=== PATIENT | male | born 1980 | race Caucasian/White ===

== ENCOUNTER 2017-09-29 11:16 | Observation (INO) ==
[2017-09-29] MEDS: 0.9 % Sodium Chloride 1,000 ML IVC ONE ×2 (11:16→16:04)
[2017-09-29] MEDS ORDERED: Pantoprazole 40 MG VIAL IVP ONE (11:18)
[2017-09-29] MEDS ORDERED: Ondansetron 4 MG/2 ML VIAL IVP ONE (11:18)
[2017-09-29] MEDS ORDERED: 0.9 % Sodium Chloride 1,000 ML IVC ONE ×2 (11:21→16:23)
[2017-09-29] MEDS ORDERED: Thiamine (B-1) 100 MG in D5% in Water 50 ML IVPB STA (11:21)
[2017-09-29 11:49] LABS: Basophils % 0.2 %; Hematocrit 48.9 % (37.5-50.1); Hemoglobin 17.1 g/dL (12.9-16.9); Immature Granulocytes % 0.2 % (0-4); Lymphocytes # 0.6 K/mcL (0.6-4.6); Lymphocytes % 11.8 %; Mean Corpuscular Hemoglobin 31.8 pg (28.0-33.3); Mean Corpuscular Volume 91.1 fL (83.0-100.0); Mean Platelet Volume 9.4 fL (9.4-12.4); Monocytes # 0.6 K/mcL (0.0-1.3); Monocytes % 11.4 %; Neutrophils # 3.9 K/mcL (1.6-8.9); Platelet Count 102 K/mcL (140-400); Red Blood Count 5.37 M/mcL (4.19-5.50); Red Cell Distribution Width 13.3 % (11.5-14.5); Segmented Neutrophils % 76.4 %
[2017-09-29 11:51] LABS: Bilirubin,Urine Moderate (Negative); Blood,Urine Negative (Negative); Glucose,Urine (UA) Normal (Normal); Ketones,Urine 40 mg/dL (Negative); Leukocyte Esterase,Urine Small (Negative); Nitrite,Urine Positive (Negative); PH,Urine 6.5 pH Units (5.0-8.0); Protein,Urine 30 mg/dL (Neg-Trace); Specific Gravity,Urine 1.027 (1.010-1.025); Urobilinogen,Urine Normal (Normal)
[2017-09-29 11:54] LABS: Squamous Epithelial Cell,Urine Many per lpf (None-Few)
[2017-09-29 11:56] LABS: Amphetamine Screen,Urine Negative ng/mL (Cutoff=1000); Barbiturate Screen,Urine Negative ng/mL (Cutoff=200); Benzodiazepines Screen,Urine Negative ng/mL (Cutoff=200); Cannabinoid Screen,Urine Negative ng/mL (Cutoff = 50); Cocaine Screen,Urine Negative ng/mL (Cutoff= 300); Opiate Screen,Urine Negative ng/mL (Cutoff=300); Phencyclidine Screen,Urine Negative ng/mL (Cutoff=25)
[2017-09-29 11:57] LABS: Clarity,Urine Hazy (Clear); Color,Urine Dark Yellow (Yellow)
[2017-09-29 12:04] LABS: Alanine Aminotransferase 125 Units/L (0-55); Albumin/Globulin Ratio 1.1 (1.1-2.2); Alkaline Phosphatase 107 Units/L (38-126); Aspartate Amino Transferase 212 Units/L (5-34); BUN/Creatinine Ratio 12 (6-26); Bilirubin,Direct 1.4 mg/dL (0.0-0.5); Bilirubin,Indirect 1.4 mg/dL (0.0-1.2); Bilirubin,Total 2.8 mg/dL (0.2-1.2); Blood Urea Nitrogen 12 mg/dL (8-26); Calcium 10.3 mg/dL (8.6-10.8); Carbon Dioxide 30 mEq/L (19-29); Chloride 90 mEq/L (98-109); Globulin 3.7 g/dL (2.4-3.5); Glucose 95 mg/dL (70-99); Lipase 49 Units/L (8-78); Osmolality,Calculated 280 (280-300); Potassium 3.2 mEq/L (3.5-4.5); Sodium 135 mEq/L (136-145); Total Protein 7.7 g/dL (6.0-8.3); eGFR For African Americans > 60 (> 60); eGFR For Non-African Americans > 60 (> 60)
[2017-09-29 12:05] LABS: Mucus,Urine Moderate (Few)
[2017-09-29 12:06] LABS: Amorphous Sediment,Urine Few (Few); Granular Casts,Urine Moderate per lpf (None Seen); Hyaline Casts,Urine Few per lpf (None-Few)
[2017-09-29 12:07] LABS: Bacteria,Urine Few per hpf (None-Few)
--- NOTE | 2017-09-29 12:07 | Emergency Department Note ---
START Narrative - START START: 37-year-old male seen and examined in conjunction with resident physician. Presented today for nausea vomiting abdominal pain is progressively last for 5 days. Patient does admit to alcohol use during this timeframe as well as some liver pathology including hepatitis. Patient denies a trauma or injury. Patient denies fevers chills chest pain shortness of breath headache vision changes at this time. His main complaint is nausea vomiting is uncontrolled abdominal discomfort. Patient otherwise in presentation appears to be normal. He does have sinus tachycardia based on vital signs. Lungs are clear heart is regular abdomen is soft but he does have tenderness in the epigastrium radiating into the upper quadrants bilaterally. There is no point tenderness guarding or rigidity noted on exam. Patient does have significantly dark- colored urine consistent with possible dehydration or kidney related issue. Patient will have detailed screening evaluation completed including EKG urinalysis urine drug screen CBC chemistry troponin chest x-ray and CT of the abdomen at this time. Disposition will be determined once workup is completed. Fluid hydration started this time as well as antiemetics for symptom control. Otherwise patient does not appear to be in any other significant distress. Concern is noted for pancreatitis first gallbladder disease versus gastritis secondary to alcohol consumption. Patient denies any hematemesis or hematochezia at this time. Otherwise evaluation is unremarkable. Disposition pending workup and treatment course. 1300 Patient found to have obstructive pathology based on labs. CT imaging does not show any acute signs of gallbladder dysfunction may does have significant fatty infiltrate and irritation. Patient could have obstructive pathology secondary to the presentation and the laboratory workup. Patient will have ultrasound ordered this time. Disposition pending the acute workup and completion of treatment course. 1445 Patient has negative ultrasound right upper quadrant. Patient will be admitted for symptom control follow-up and possible ERCP in inpatient setting. No other concerns or issues at this time.
--- NOTE | 2017-09-29 12:42 | Emergency Department Note ---
Disposition Clinical Impression: Abdominal pain of unknown etiology, Total bilirubin, elevated, Hypokalemia, Biliary obstruction Nausea with vomiting, unspecified Qualifiers: Vomiting type: unspecified Vomiting Intractability: non-intractable Qualified Code(s): R11.2 - Nausea with vomiting, unspecified Disposition: Admitted As Inpatient Condition: Undetermined Referrals: Iris Ambrose MD [Primary Care Provider] - Forms: ED Satisfaction Letter, Work/School Release Time of Disposition: 15:45 Abdominal Pain HPI - General Chief Complaint: ED Abdominal Pain Stated Complaint: Abdominal pain, vomiting Time Seen by Provider: 09/29/17 11:18 Source: EMS Nursing Notes Reviewed: Yes Vital Signs Reviewed: Yes - History of Present Illness HPI Narrative: Patient is 37-year-old male complains of epigastric and right upper quadrant abdominal pain 4 days. Patient also complains of near continuous nausea and vomiting since then. Patient states he vomits every 20 minutes. Patient states the pain is sharp 10 out of 10. Patient has a history of all call his him and states he tried to drink alcohol to help lessen his pain but threw up. Patient denies any hematemesis or hematochezia or melanotic stools. Patient states he drinks 2-3 shots of vodka a day. Patient also states he has liver issues. Pain Scale: 9 - Related Data Home Medications Medication Instructions Recorded Confirmed Mv-Mn/FA/Vit K/Lycop/Lut/Coq10 1 tab PO DAILY 09/29/17 09/29/17 [Daily Multivitamin Capsule] Naproxen Sodium [Aleve] 220 mg PO BID PRN 09/29/17 09/29/17 Allergies Allergy/AdvReac Type Severity Reaction Status Date / Time No Known Allergies Allergy Verified 09/29/17 15:08 All systems ED: reviewed and negative except as stated. Review of Systems: As Per HPI Constitutional: Reports: fever, chills Eyes: Denies: vision change ENT ED: Denies: congestion Cardiovascular: Denies: chest pain Respiratory: Denies: cough, wheezes, hemoptysis Gastrointestinal: Reports: abdominal pain, nausea, vomiting. Denies: diarrhea, hematemesis, melena, hematochezia Genitourinary: Reports: dysuria, hematuria Abdominal Pain PMH - Past Medical History Medical history: Reports: asthma, liver disease, renal disease Male Surgical History: Reports: orthopedic, other - Social History Smoking status: Former smoker Alcohol use: Reports: occasionally Drug use: Reports: none Physical Exam Vital Signs Temperature 98.4 F 09/29/17 11:23 Pulse Rate 134 09/29/17 11:23 Respiratory Rate 18 09/29/17 11:23 Blood Pressure 120/93 09/29/17 11:23 O2 Sat by Pulse Oximetry 95 09/29/17 11:23 Temperature 98.4 F 09/29/17 11:23 Pulse Rate 112 09/29/17 11:35 Respiratory Rate 16 09/29/17 11:35 Blood Pressure 120/95 09/29/17 11:35 O2 Sat by Pulse Oximetry 95 09/29/17 11:35 Oxygen Delivery Oxygen Delivery Room Air 37-year-old male is alert and oriented 3 and in acute distress secondary to abdominal discomfort. Patient has a vomit bag in hand. Patient does not appear toxic at this time. He is tachycardic at 134 but is afebrile and also has hypertension with a blood pressure of 120/93. O2 sat 95 on room air. - General Limitations: no limitations General appearance: alert, anxious - Head Head exam: atraumatic, normocephalic, normal inspection - Eye Eye exam: Present: normal appearance, PERRL, EOMI - ENT ENT exam: normal exam, normal oropharynx, mucous membranes moist - Neck Neck exam: Present: normal inspection, full ROM, trachea midline - Chest Chest inspection: Present: normal inspection, symmetric chest wall rise - Respiratory Respiratory exam: Present: normal lung sounds bilaterally. Absent: respiratory distress, wheezes - Cardiovascular Cardiovascular exam: Present: normal rhythm, tachycardia - Abdominal Exam Abdominal exam: Present: soft, tenderness, normal bowel sounds. Absent: distention, guarding, rebound, rigidity - Extremities Exam Extremities exam: Present: normal inspection, full ROM, normal capillary refill. Absent: tenderness, pedal edema - Back Exam Back exam: Present: normal inspection, full ROM, CVA tenderness (R). Absent: tenderness, CVA tenderness (L), rashes - Neurological Exam Neurological exam: Present: alert, oriented X3 - Skin Skin exam: Present: warm, dry, intact, normal color. Absent: rash Course Vital Signs Temperature 98.4 F 09/29/17 11:23 Pulse Rate 134 09/29/17 11:23 Respiratory Rate 18 09/29/17 11:23 Blood Pressure 120/93 09/29/17 11:23 O2 Sat by Pulse Oximetry 95 09/29/17 11:23 Temperature 98.4 F 09/29/17 11:23 Pulse Rate 120 09/29/17 15:04 Respiratory Rate 18 09/29/17 15:04 Blood Pressure 137/104 09/29/17 15:04 O2 Sat by Pulse Oximetry 97 09/29/17 15:04 Oxygen Delivery Oxygen Delivery Room Air Abdominal Pain - MDM Narrative Medical decision making narrative: Patient concern for possible pancreatitis, cholecystitis, biliary obstruction, he has hematuria so renal pathology for nephrolithiasis, UTI. Patient also concerning for a call withdrawal. WA ordered Order appropriate labs: CBC, BMP, LFTs, lipase, lactate, chest x-ray CT abdomen and pelvis. Medications IV normal saline, thiamine 100 mg IV. Since imaging results are: Abdomen/Pelvis CT 09/29/17 11:20 IMPRESSION: 1. No evidence of bowel obstruction, intraperitoneal free air, or abscess. 2. Findings consistent with interval development of moderate relatively diffuse fatty infiltration of the liver. 3. Findings suggestive of presence of extremely minimal/trace free fluid within the pelvis. Finding is nonspecific however represents abnormal finding in a male patient. Short-term follow-up examination recommended if clinically indicated. 4. Findings suggestive of presence of small hiatal hernia. Possible mural thickening involving the distal esophagus. Finding is nonspecific however raises the possibility of changes of mild esophagitis. Follow-up endoscopy may be helpful for more complete evaluation. Liver and gallbladder ultrasound shows fatty liver. Labs show patient is hypokalemic and will need to be given potassium supplementation IV. No clear cause for patient's of biliary obstruction currently. Plan for admission. Patient accepts this is not for admission. Patient may require ERCP to investigate possible common bile duct obstruction. Patient will continue to receive pain management and nausea management for her symptoms. Patient is administered 0.5 mg Ativan to control any alcohol withdrawal symptoms. He will continue to get treatment for his pain. His been receiving fentanyl sofar will change and administer Dilaudid 1 mg. Patient was accepted for admission by Dr. Gruber. - Lab Data Lab results reviewed: Yes I reviewed the patient's lab results. Lab results narrative: Short CBC 09/29/17 Range/Units 11:42 WBC 5.1 (4.3-11.1) K/mcL Hgb 17.1 H (12.9-16.9) g/dL Hct 48.9 (37.5-50.1) % Plt Count 102 L (140-400) K/mcL Neutrophils # 3.9 (1.6-8.9) K/mcL BMP 09/29/17 Range/Units 11:42 Sodium 135 L (136-145) mEq/L Potassium 3.2 L (3.5-4.5) mEq/L Chloride 90 L (98-109) mEq/L Carbon Dioxide 30 H (19-29) mEq/L BUN 12 (8-26) mg/dL Creatinine 1.00 (0.72-1.25) mg/dL Glucose 95 (70-99) mg/dL Calcium 10.3 (8.6-10.8) mg/dL Cardiac Enzymes 09/29/17 Range/Units 11:42 Troponin I 0.01 (0-0.03) ng/mL Liver Function 09/29/17 Range/Units 11:42 Total Bilirubin 2.8 H (0.2-1.2) mg/dL Direct Bilirubin 1.4 H (0.0-0.5) mg/dL AST 212 H (5-34) Units/L ALT 125 H (0-55) Units/L Alkaline Phosphatase 107 (38-126) Units/L Albumin 4.0 (3.5-5.0) g/dL Urine 09/29/17 Range/Units 11:33 Urine Color Dark Yellow (Yellow) Urine Clarity Hazy (Clear) Urine pH 6.5 (5.0-8.0) pH Units Ur Specific [place] 1.027 H (1.010-1.025) Urine Protein 30 H (Neg-Trace) mg/dL Urine Glucose (UA) Normal (Normal) mg/dL Result diagrams: 09/29/17 11:42 09/29/17 11:42 Lab Results 09/29/17 09/29/17 09/29/17 Range/Units 11:33 11:33 11:42 WBC 5.1 (4.3-11.1) K/mcL RBC 5.37 (4.19-5.50) M/mcL Hgb 17.1 H (12.9-16.9) g/dL Hct 48.9 (37.5-50.1) % MCV 91.1 (83.0-100.0) fL MCH 31.8 (28.0-33.3) pg MCHC 35.0 (31.6-35.5) g/dL RDW 13.3 (11.5-14.5) % Plt Count 102 L (140-400) K/mcL MPV 9.4 (9.4-12.4) fL Immature Gran % 0.2 (0-4) % Seg Neutrophils % 76.4 % Lymphocytes % 11.8 % Monocytes % 11.4 % Eosinophils % 0.0 % Basophils % 0.2 % Neutrophils # 3.9 (1.6-8.9) K/mcL Lymphocytes # 0.6 (0.6-4.6) K/mcL Monocytes # 0.6 (0.0-1.3) K/mcL Eosinophils # 0.0 (0.0-0.6) K/mcL Basophils # 0.0 (0.0-0.2) K/mcL Sodium (136-145) mEq/L Potassium (3.5-4.5) mEq/L Chloride (98-109) mEq/L Carbon Dioxide (19-29) mEq/L BUN (8-26) mg/dL Creatinine (0.72-1.25) mg/dL Est GFR ( Amer) (> 60) Est GFR (Non-Af Amer) (> 60) BUN/Creatinine Ratio (6-26) Glucose (70-99) mg/dL Calculated Osmolality (280-300) Lactic Acid (0.5-2.2) mmol/L Calcium (8.6-10.8) mg/dL Total Bilirubin (0.2-1.2) mg/dL Direct Bilirubin (0.0-0.5) mg/dL Indirect Bilirubin (0.0-1.2) mg/dL AST (5-34) Units/L ALT (0-55) Units/L Alkaline Phosphatase (38-126) Units/L Troponin I (0-0.03) ng/mL Serum Total Protein (6.0-8.3) g/dL Albumin (3.5-5.0) g/dL Globulin (2.4-3.5) g/dL Albumin/Globulin Ratio (1.1-2.2) Lipase (8-78) Units/L Urine Color Dark Yellow (Yellow) Urine Clarity Hazy (Clear) Urine pH 6.5 (5.0-8.0) pH Units Ur Specific [place] 1.027 H (1.010-1.025) Urine Protein 30 H (Neg-Trace) mg/dL Urine Glucose (UA) Normal (Normal) mg/dL Urine Ketones 40 H (Negative) mg/dL Urine Blood Negative (Negative) Urine Nitrite Positive A (Negative) Urine Bilirubin Moderate H (Negative) Urine Urobilinogen Normal (Normal) mg/dL Ur Leukocyte Esterase Small H (Negative) Urine Microscopic RBC 3-5 H (0-3) per hpf Urine Microscopic WBC 5-15 H (0-3) per hpf Ur Squamous Epith Cells Many H (None-Few) per lpf Amorphous Sediment Few (Few) Urine Bacteria Few (None-Few) per hpf Hyaline Casts Few (None-Few) per lpf Granular Casts Moderate H (None Seen) per lpf Urine Mucus Moderate H (Few) Ur Culture Indicated? NO (NO) Urine Opiates Screen Negative (Wgvgqy=445) ng/mL Ur Barbiturates Screen Negative (Exjgun=978) ng/mL Ur Phencyclidine Scrn Negative (Cutoff=25) ng/mL Ur Amphetamines Screen Negative (Mlwnxr=1898) ng/mL U Benzodiazepines Scrn Negative (Uvzbih=910) ng/mL Urine Cocaine Screen Negative (Cutoff= 300) ng/mL U Marijuana (THC) Screen Negative (Cutoff = 50) ng/mL 09/29/17 09/29/17 09/29/17 Range/Units 11:42 11:42 11:42 WBC (4.3-11.1) K/mcL RBC (4.19-5.50) M/mcL Hgb (12.9-16.9) g/dL Hct (37.5-50.1) % MCV (83.0-100.0) fL MCH (28.0-33.3) pg MCHC (31.6-35.5) g/dL RDW (11.5-14.5) % Plt Count (140-400) K/mcL MPV (9.4-12.4) fL Immature Gran % (0-4) % Seg Neutrophils % % Lymphocytes % % Monocytes % % Eosinophils % % Basophils % % Neutrophils # (1.6-8.9) K/mcL Lymphocytes # (0.6-4.6) K/mcL Monocytes # (0.0-1.3) K/mcL Eosinophils # (0.0-0.6) K/mcL Basophils # (0.0-0.2) K/mcL Sodium 135 L (136-145) mEq/L Potassium 3.2 L (3.5-4.5) mEq/L Chloride 90 L (98-109) mEq/L Carbon Dioxide 30 H (19-29) mEq/L BUN 12 (8-26) mg/dL Creatinine 1.00 (0.72-1.25) mg/dL Est GFR ( Amer) > 60 (> 60) Est GFR (Non-Af Amer) > 60 (> 60) BUN/Creatinine Ratio 12 (6-26) Glucose 95 (70-99) mg/dL Calculated Osmolality 280 (280-300) Lactic Acid 3.0 H (0.5-2.2) mmol/L Calcium 10.3 (8.6-10.8) mg/dL Total Bilirubin 2.8 H (0.2-1.2) mg/dL Direct Bilirubin 1.4 H (0.0-0.5) mg/dL Indirect Bilirubin 1.4 H (0.0-1.2) mg/dL AST 212 H (5-34) Units/L ALT 125 H (0-55) Units/L Alkaline Phosphatase 107 (38-126) Units/L Troponin I 0.01 (0-0.03) ng/mL Serum Total Protein 7.7 (6.0-8.3) g/dL Albumin 4.0 (3.5-5.0) g/dL Globulin 3.7 H (2.4-3.5) g/dL Albumin/Globulin Ratio 1.1 (1.1-2.2) Lipase 49 (8-78) Units/L Urine Color (Yellow) Urine Clarity (Clear) Urine pH (5.0-8.0) pH Units Ur Specific [place] (1.010-1.025) Urine Protein (Neg-Trace) mg/dL Urine Glucose (UA) (Normal) mg/dL Urine Ketones (Negative) mg/dL Urine Blood (Negative) Urine Nitrite (Negative) Urine Bilirubin (Negative) Urine Urobilinogen (Normal) mg/dL Ur Leukocyte Esterase (Negative) Urine Microscopic RBC (0-3) per hpf Urine Microscopic WBC (0-3) per hpf Ur Squamous Epith Cells (None-Few) per lpf Amorphous Sediment (Few) Urine Bacteria (None-Few) per hpf Hyaline Casts (None-Few) per lpf Granular Casts (None Seen) per lpf Urine Mucus (Few) Ur Culture Indicated? (NO) Urine Opiates Screen (Vvbtjw=728) ng/mL Ur Barbiturates Screen (Fhthpu=050) ng/mL Ur Phencyclidine Scrn (Cutoff=25) ng/mL Ur Amphetamines Screen (Xranez=4312) ng/mL U Benzodiazepines Scrn (Mrhkdz=606) ng/mL Urine Cocaine Screen (Cutoff= 300) ng/mL U Marijuana (THC) Screen (Cutoff = 50) ng/mL - Radiology Data Radiology results reviewed: Yes I reviewed the patient's radiology results. Abdomen/Pelvis CT 09/29/17 11:20 IMPRESSION: 1. No evidence of bowel obstruction, intraperitoneal free air, or abscess. 2. Findings consistent with interval development of moderate relatively diffuse fatty infiltration of the liver. 3. Findings suggestive of presence of extremely minimal/trace free fluid within the pelvis. Finding is nonspecific however represents abnormal finding in a male patient. Short-term follow-up examination recommended if clinically indicated. 4. Findings suggestive of presence of small hiatal hernia. Possible mural thickening involving the distal esophagus. Finding is nonspecific however raises the possibility of changes of mild esophagitis. Follow-up endoscopy may be helpful for more complete evaluation. D/ / 09/29/2017 12:59:23 Jake Darling MD / woody Interpreting Provider: Jake Darling MD Chest X-Ray 09/29/17 11:21 IMPRESSION: No acute process. D/ / Raymond Montenegro MD / Raymond Montenegro MD Interpreting Provider: Raymond Montenegro MD Gallbladder Ultrasound 09/29/17 12:10 IMPRESSION: Fatty liver. D/ / 09/29/2017 14:53:51 Raymond Montenegro MD / woody Interpreting Provider: Raymond Montenegro MD - EKG Data EKG attestation: Yes I reviewed and interpreted this EKG. EKG results narrative: EKG taken 09/29/2017 at 1202 hrs. shows sinus tachycardia at a rate of 1 11 bpm with no acute ST elevations or depressions and a leads, no QRS widening or QT prolongation. Patient has no PT waves. Patient has previous EKG taken in March 2013 which also shows a sinus tachycardia at a rate of 130 bpm with no signs of ischemia. Critical Care Time Critical Care Time: Yes Total Critical Care Time: 35 Attestation: Critical care performed: Time is exclusive of separately billable procedures. Time includes: direct patient care, patient reassessment, coordination of patient care, interpretation of data (laboratory data, radiology data, and respiratory data), review of patient's medical records, medical consultation and documentation of patient care. Procedures included in critical care time: Procedures excluded from critical care time: Attestation Statement - Attestation Attestation: I, Carlos Hill DO, examined this patient [id number] and my medical decision-making was reviewed with Dr. Gallo Fairbanks, Resident Physician. I agree with the documented findings, disposition and treatment plan as described except to the extent set forth below. Please see my progress notes for details. 35 minutes of critical care provider this patient secondary to multifactorial medical conditions
[2017-09-29] MEDS ORDERED: *HR* FentaNYL (PF) 100 MCG/2 ML VIAL IVP ONE ×2 (13:15→14:22)
[2017-09-29] MEDS ORDERED: Glycopyrrolate 0.2 MG/ML VIAL IVP ONE (13:15)
[2017-09-29] MEDS ORDERED: *HR* LORazepam 2 MG/ML VIAL IVP ONE (15:04)
[2017-09-29] MEDS ORDERED: *HR* HYDROmorphone (PF) 1 MG/ML SYRINGE IVP ONE (15:49)
[2017-09-29] MEDS ORDERED: Naloxone 0.4 MG/ML INJ IVP PRN (16:15)
[2017-09-29] MEDS ORDERED: Acetaminophen 325 MG TABLET PO PRN (16:15)
[2017-09-29] MEDS ORDERED: *HR* LORazepam 2 MG/ML VIAL IVP PRN ×2 (16:18)
--- NOTE | 2017-09-29 16:29 | Internal Med History&Physical ---
<Jones Ng Justin - Last Filed: 09/29/17 16:25> Date of Encounter: 09/29/17 Time of Encounter: 16:25 Assessment and Plan (1) Hepatitis Current visit: Yes Status: Acute Patient presents with nausea, vomiting, dehydration, hypokalemia, AST 212, ALT 125, total bilirubin 2.8, direct bilirubin 1.4, indirect bilirubin 1.4. - PT/INR pending Mr. Catalan has a known history of IV drug use but denies any history of hepatitis C, B. He does have a known history of fatty liver disease and does use alcohol on a regular daily basis. - Current concern is for a viral hepatitis versus alcoholic hepatitis. Plan: - PT/INR - Hepatitis panel - Avoid acetaminophen, other liver toxic medications. (2) Dehydration Current visit: Yes Status: Acute Mr. Catalan demonstrates findings of severe dehydration with a hemoglobin of 17.1, hematocrit 48.9, concentrated urine, tachycardia and elevated systolic and diastolic blood pressure. - he has received 2000 mL's normal saline the emergency department Plan : - 1000 mL bolus normal saline - Maintenance fluids at 150 ML's per hour - Cardiac monitoring (3) Alcohol abuse Current visit: Yes Status: Acute Patient has an addictive personality, known alcohol abuse who usually drinks 8+ shots of vodka per day. He has had reduction in his alcohol intake secondary to abdominal discomfort, nausea and vomiting but has attempted to drink some alcohol to garcia off tremors. Plan: - [facility] protocol - Continue monitoring symptoms (4) Fatty liver Current visit: Yes Status: Acute Patient is a known history of fatty liver disease, patient does not use alcohol regularly basis and history of IV drug use. CT of the abdomen demonstrated Findings consistent with interval development of moderate relatively diffuse fatty infiltration of the liver. - Avoid hepatotoxic medications (5) Abdominal pain of unknown etiology Current visit: Yes Status: Acute Suspect abdominal pain secondary to severe dehydration and withdrawals. Cannot rule out hepatic nature. - No acute findings on CT of the abdomen and pelvis. - Plan as discussed above. (6) Total bilirubin, elevated Current visit: Yes Status: Acute Likely secondary to dehydration and hepatitis. (7) Hypokalemia Current visit: Yes Status: Acute Secondary to nausea and vomiting. - We will replace electrolytes, follow daily. (8) Esophagitis Current visit: Yes Status: Acute Patient presenting with abdominal pain no history of alcohol abuse, CT findings of small hiatal hernia, possible mural thickening involving the distal esophagus. Findings were discussed as nonspecific however raise the possibility of change of mild esophagitis. - Consult gastroenterology tomorrow. Consult were placed, needs to be completed. (9) DVT prophylaxis Current visit: Yes Status: Acute SCDs Internal Medicine - H&P: HPI Chief complaint: N/V Admitted From: Home Plans for Post Hospital Care: Home History of present illness: Mr. Catalan is a 37 year old male past medical history opiate abuse, IV drug abuse , current alcohol abuse, known fatty liver disease presented to the emergency department this evening with unrelenting nausea and vomiting since Saturday. Mr. Catalan says that his last meal was on Saturday morning and since then he has felt nauseous and vomiting and epigastric discomfort radiating over to his right upper quadrant. He states that he feels like he vomits every 20 minutes has not been able to keep any food or water down and has not tried any medications to help relieve the symptoms. This is the first time he is seeking treatment for this problem. Exacerbating factors include trying to eat or drink, abdominal outpatient. There have been no significant relieving factors. He does admit to occasional alcohol use during the past week with the last use last evening where he had 2 shots of vodka. With his mother present he admits to 8 shots of vodka a day that he drinks throughout the day on a daily basis. He has an alcohol disorder and recently as of one month ago received a shot to help him with his alcohol abuse down at [facility]. He states that he has really not felt well since he received a shot. He does have a history of IV drug use and opiate abuse but has not abused drugs for years. He denies any known history of hepatitis C and says that he has been tested prior without any findings. He has not noticed any blood in his vomit. He has been constipated with only 1 bowel movement in the past week. Past Med Surg Social Fam HX - Past Medical History Medical history: asthma, liver disease, renal disease - Social History Smoking Status: Former smoker Smokeless Tobacco Status: Yes Alcohol use: occasionally Drug use: none - Family History Grandfather Living Status: Hx Family GI Disorders: Yes (Cirrhosis) Hx Family Psychosocial Disorders: Yes (Alcohol abuse) Internal Medicine - H&P: Meds Mv-Mn/FA/Vit K/Lycop/Lut/Coq10 [Daily Multivitamin Capsule] 1 tab PO DAILY 09/29 [History] Naproxen Sodium [Aleve] 220 mg PO BID PRN 09/29/17 [History] 3 Allergy/AdvReac Type Severity Reaction Status Date / Time No Known Allergies Allergy Verified 09/29/17 15:08 All Systems PM: A 10-system review of systems was performed and is negative for pertinent findings except as documented above in the HPI. - Constitutional Constitutional: fatigue, fever(s), malaise - EENT Eyes: no change in vision, no discharge, no pain, no photophobia - Cardiovascular Cardiovascular ROS IM: palpitations, no irregular heart rhythm - Respiratory Respiratory: no cough, no dyspnea, no wheezing, no excessive phlegm production - Gastrointestinal Gastrointestinal: abdominal pain, change in bowel habits, constipation, dyspepsia, nausea, vomiting, no change in stool character, no coffee ground emesis, no diarrhea, no loose stools, no melena - Genitourinary Genitourinary ROS male: no hematuria, no urinary frequency, no urinary incontinence - Musculoskeletal Musculoskeletal ROS IM: no arthralgias, no back pain, no limited range of motion , no numbness - Neurological Neurological ROS: no confusion, no convulsions, no focal weakness, no numbness, no tingling, no tremor(s) - Hematologic/Lymphatic Hematologic/Lymphatic: no easy bruising - Constitutional Vitals: Temp Pulse Resp BP Pulse Ox 98.4 F 115 18 144/102 96 09/29/17 11:23 09/29/17 16:11 09/29/17 16:11 09/29/17 16:11 09/29/17 16:11 - Head Head exam: Present: atraumatic, normocephalic - Eye Eye exam: Present: PERRL, conjuntiva pink, sclera anicteric Pupils: Present: PERRL - Neck Neck exam general surgery: Present: supple, trachea midline. Absent: lymphadenopathy - Respiratory Respiratory exam: Present: CTAB. Absent: accessory muscle use, rales, rhonchi, wheezes - Cardiovascular Cardiovascular exam: Present: +S1, +S2, tachycardia. Absent: diastolic murmur, gallop, rubs, systolic murmur - GI/Abdominal GI/Abdominal exam: Present: normal bowel sounds, soft, tenderness, no peritoneal signs. Absent: distended - Extremities Exam Extremities exam: Present: warm, radial pulses palpable and symmetrical. Absent : calf tenderness, cyanotic, pedal edema - Neurological Exam Neurological exam: Present: alert, oriented X3, no focal deficits. Absent: pronater drift, facial droop, speech deficit - Skin Skin exam: Present: dry, intact Internal Med - H&P Results - Labs CBC & Chem 7: 09/29/17 11:42 09/29/17 11:42 <Will Stewart - Last Filed: 09/29/17 17:11> Date of Encounter: 09/29/17 Assessment and Plan (1) Acute alcoholic hepatitis Current visit: Yes Status: Acute (2) Dehydration Current visit: Yes Status: Acute (3) Hypokalemia Current visit: Yes Status: Acute (4) Fatty liver Current visit: Yes Status: Acute (5) Esophagitis Current visit: Yes Status: Suspected (6) Alcohol withdrawal Current visit: Yes Status: Acute Qualifiers: Complication of substance-induced condition: uncomplicated Qualified Code(s ): F10.230 - Alcohol dependence with withdrawal, uncomplicated (7) Abdominal pain Current visit: Yes Status: Acute Qualifiers: Abdominal location: right upper quadrant Qualified Code(s): R10.11 - Right upper quadrant pain (8) Tobacco abuse Current visit: Yes Status: Chronic Patch ordered Internal Medicine - H&P: HPI History of present illness: Mr. Catalan is a 37 year old male All Systems PM: A 10-system review of systems was performed and is negative for pertinent findings except as documented above in the HPI. - Constitutional Vitals: Temp Pulse Resp BP Pulse Ox 98.8 F 102 15 147/93 97 09/29/17 16:35 09/29/17 16:35 09/29/17 16:35 09/29/17 16:35 09/29/17 16:35 Internal Med - H&P Results - Labs CBC & Chem 7: 09/29/17 11:42 09/29/17 11:42 - Attending Attestation I examined this patient and my medical decision-making was reviewed with the Resident Physician on 09/29/17. I agree with the documented findings, disposition and treatment plan as described except to the extent set forth below. 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 He has received IM Naltrexone recently but continued to drink ETOH. Since Saturday he has had intractable nausea and vomiting. No blood. He is having midepigastric and RUQ discomfort. Labs consistent with acute alcoholic hepatitis (not severe). He does have hx of ETOH withdrawal but no seizures. He was evaluated and is hospitalized. Exam Alert. Mod distress due to discomfort Mucus membranes dry Heart tachy and regular Lungs clear bilaterally Abd soft. Tender epigastric/RUQ area with no peritoneal signs No edema I/P 1. Intractable nausea and vomiting 2. Probable gastritis 3. Acute ETOH withdrawal Further diagnoses and plan as above.
[2017-09-29] MEDS ORDERED: MOM Conc 10 ML UD.LIQ PO PRN (17:01)
[2017-09-29] MEDS: Vitamin B Complex/Vit C/Vit E 1 EACH TABLET PO SCH (17:08)
[2017-09-29] MEDS: Folic Acid 1 MG TABLET PO SCH (17:08)
[2017-09-29] MEDS: 0.9 % Sodium Chloride 1,000 ML IVC SCH (17:09)
[2017-09-29 17:14] LABS: INR 1.1; Prothrombin Time 11.5 Seconds (9.4-12.1)
[2017-09-29 17:22] LABS: Chol/HDL Ratio 3.4 (0-4.9)
[2017-09-29 17:28] LABS: Phosphorous 0.9 mg/dL (2.3-4.7)
[2017-09-29] MEDS: Ondansetron 4 MG/2 ML VIAL IVP PRN (18:29)
[2017-09-29] MEDS: traMADol 50 MG TABLET PO PRN (18:29)
[2017-09-29] MEDS: Pantoprazole 40 MG VIAL IVP SCH (18:39)
[2017-09-29] MEDS ORDERED: Dextrose Gel 15 GM PO PRN (18:57)
[2017-09-29] MEDS: cloNIDine HCl 0.1 MG TABLET PO SCH (20:01)
[2017-09-30] MEDS: 0.9 % Sodium Chloride 1,000 ML IVC SCH (00:41)
[2017-09-30] MEDS: traMADol 50 MG TABLET PO PRN ×2 (04:04→11:52)
[2017-09-30] MEDS: Ondansetron 4 MG/2 ML VIAL IVP PRN ×3 (04:05→21:39)
[2017-09-30] MEDS: Pantoprazole 40 MG VIAL IVP SCH ×2 (05:19→17:40)
[2017-09-30 06:28] LABS: Basophils % 0.4 %; Eosinophils % 1.1 %; Hematocrit 40.9 % (37.5-50.1); Hemoglobin 13.7 g/dL (12.9-16.9); Immature Granulocytes % 0.4 % (0-4); Immature Platelets 5.6 % (1.1-6.1); Lymphocytes # 0.5 K/mcL (0.6-4.6); Lymphocytes % 18.2 %; Mean Corpuscular HGB Conc 33.5 g/dL (31.6-35.5); Mean Corpuscular Hemoglobin 31.7 pg (28.0-33.3); Mean Corpuscular Volume 94.7 fL (83.0-100.0); Mean Platelet Volume 9.9 fL (9.4-12.4); Monocytes # 0.3 K/mcL (0.0-1.3); Monocytes % 9.5 %; Neutrophils # 1.9 K/mcL (1.6-8.9); Red Blood Count 4.32 M/mcL (4.19-5.50); Red Cell Distribution Width 13.5 % (11.5-14.5); Segmented Neutrophils % 70.4 %
[2017-09-30 06:31] LABS: Magnesium 1.6 mg/dL (1.6-2.6)
[2017-09-30 06:32] LABS: BUN/Creatinine Ratio 11 (6-26); Blood Urea Nitrogen 9 mg/dL (8-26); Calcium 8.9 mg/dL (8.6-10.8); Carbon Dioxide 29 mEq/L (19-29); Chloride 100 mEq/L (98-109); Glucose 77 mg/dL (70-99); Osmolality,Calculated 285 (280-300); Phosphorous 1.5 mg/dL (2.3-4.7); Platelet Count 71 K/mcL (140-400); Potassium 3.4 mEq/L (3.5-4.5); Sodium 139 mEq/L (136-145); eGFR For African Americans > 60 (> 60); eGFR For Non-African Americans > 60 (> 60)
[2017-09-30] MEDS: cloNIDine HCl 0.1 MG TABLET PO SCH ×2 (08:23→21:21)
[2017-09-30] MEDS: Folic Acid 1 MG TABLET PO SCH (08:23)
[2017-09-30] MEDS: Vitamin B Complex/Vit C/Vit E 1 EACH TABLET PO SCH (08:23)
[2017-09-30] MEDS: Nicotine 21 MG PATCH.TD24 TD SCH (08:23)
[2017-09-30] MEDS: Thiamine (B-1) 100 MG TABLET PO SCH (08:24)
--- NOTE | 2017-09-30 10:32 | Internal Med Progress Note ---
<Shikha Patel - Last Filed: 09/30/17 15:09> Date of Encounter: 09/30/17 Time of Encounter: 10:30 - Assessment and plan (1) Hepatitis Current Visit: Yes Status: Acute Assessment and plan: Patient presented with a 1 week history of intractable nausea and vomiting stating he has not been able to keep anything down. He states he has not eaten anything since Saturday, Sep 23. He was however drinking shots of vodka throughout this illness. Initial labs showed dehydration, hypokalemia, hypophosphatemia, AST 212, ALT 125 , total bilirubin 2.8, direct bilirubin 1.4, indirect bilirubin 1.4, normal PT/ INR. He has a hx of IV drug abuse but denies history of hepatitis B/C. Known hx of fatty liver disease and daily alcohol use. Plan: -hepatitis panel pending -avoid acetaminophen, other liver toxic medications (2) Alcohol abuse Current Visit: Yes Status: Acute Assessment and plan: Patient has an addictive personality, known alcohol abuse who usually drinks 8+ shots of vodka per day. He has had reduction in his alcohol intake secondary to abdominal discomfort, nausea and vomiting but has attempted to drink some alcohol to garcia off tremors. Plan: - [facility] protocol - Continue monitoring symptoms (3) Fatty liver Current Visit: Yes Status: Acute Assessment and plan: Patient is a known history of fatty liver disease, patient does use alcohol regularly basis and history of IV drug use. CT of the abdomen demonstrated findings consistent with interval development of moderate relatively diffuse fatty infiltration of the liver. - Avoid hepatotoxic medications (4) Abdominal pain of unknown etiology Current Visit: Yes Status: Acute Assessment and plan: due to withdrawal vs alcoholic gastritis vs other - EGD today - continue PPI (5) Total bilirubin, elevated Current Visit: Yes Status: Acute Assessment and plan: Likely secondary to dehydration and hepatitis (6) Hypokalemia Current Visit: Yes Status: Acute Assessment and plan: Secondary to nausea and vomiting -replace as needed -follow labs daily (7) Hypophosphatemia Current Visit: Yes Status: Acute Assessment and plan: Secondary to nausea and vomiting -replace as needed -follow labs daily (8) Esophagitis Current Visit: Yes Status: Suspected Assessment and plan: Patient presenting with abdominal pain no history of alcohol abuse, CT findings of small hiatal hernia, possible mural thickening involving the distal esophagus. Findings were discussed as nonspecific however raise the possibility of change of mild esophagitis. - GI consulted; EGD today - Subjective Interval history: Patient states that he is nauseous and still having abdominal pain. His abdominal pain is made worse with things that increase abdominal pressure such as coughing and sneezing. He also states that at rest he has sharp abdominal pains that come. He states he also has been having abdominal spasms that feel like he is jonathan his abdominal muscles but he is not doing any work. - Constitutional Vitals: Temp Pulse Resp BP Pulse Ox 98.5 F 75 16 123/81 98 09/30/17 06:47 09/30/17 06:47 09/30/17 06:47 09/30/17 06:47 09/30/17 06:47 General appearance: Present: mild distress, A&O X 3, answers questions appropriately - Head Head exam: Present: atraumatic, normocephalic - Eye Eye exam: Present: PERRL, conjuntiva pink, sclera anicteric Pupils: Present: PERRL - Neck Neck exam general surgery: Present: supple, trachea midline. Absent: lymphadenopathy - Respiratory Respiratory exam: Present: CTAB. Absent: accessory muscle use, rales, rhonchi, wheezes - Cardiovascular Cardiovascular exam: Present: RRR, +S1, +S2. Absent: diastolic murmur, gallop, rubs, systolic murmur - GI/Abdominal GI/Abdominal exam: Present: normal bowel sounds, soft, tenderness (Midline and right upper quadrant), no peritoneal signs. Absent: distended - Extremities Exam Extremities exam: Present: warm. Absent: pedal edema, tenderness Additional comments: Dorsalis pedis pulses palpable and symmetric - Neurological Exam Neurological exam: Present: CN II-XII intact, oriented X3, no focal deficits. Absent: facial droop, speech deficit - Skin Skin exam: Present: dry, intact Internal Medicine: Result - Labs CBC & Chem 7: 09/30/17 05:42 09/30/17 05:42 Labs: Short CBC 09/30/17 Range/Units 05:42 WBC 2.7 L (4.3-11.1) K/mcL Hgb 13.7 D (12.9-16.9) g/dL Hct 40.9 (37.5-50.1) % Plt Count 71 L (140-400) K/mcL Neutrophils # 1.9 (1.6-8.9) K/mcL BMP 09/30/17 05:42 Sodium 139 Potassium 3.4 L Chloride 100 Carbon Dioxide 29 BUN 9 Creatinine 0.81 Glucose 77 Calcium 8.9 - ABG Interpretation ABG results: PT/INR, D-dimer PT 11.5 Seconds (9.4-12.1) 09/29/17 17:01 Consult Discharge Plan - Plan Referrals: Iris Ambrose MD [Primary Care Provider] - <Will Stewart - Last Filed: 09/30/17 18:46> Date of Encounter: 09/30/17 - Assessment and plan (1) Acute alcoholic hepatitis Current Visit: Yes Status: Acute (2) Dehydration Current Visit: Yes Status: Acute (3) Hypokalemia Current Visit: Yes Status: Acute (4) Fatty liver Current Visit: Yes Status: Acute (5) Esophagitis Current Visit: Yes Status: Suspected (6) Alcohol withdrawal Current Visit: Yes Status: Acute Qualifiers: Complication of substance-induced condition: uncomplicated Qualified Code(s ): F10.230 - Alcohol dependence with withdrawal, uncomplicated (7) Abdominal pain Current Visit: Yes Status: Acute Qualifiers: Abdominal location: right upper quadrant Qualified Code(s): R10.11 - Right upper quadrant pain (8) Tobacco abuse Current Visit: Yes Status: Chronic (9) Hypophosphatemia Current Visit: Yes Status: Acute - Constitutional Vitals: Temp Pulse Resp BP Pulse Ox 98.7 F 81 16 155/98 97 09/30/17 14:30 09/30/17 14:30 09/30/17 14:30 09/30/17 14:30 09/30/17 14:30 Internal Medicine: Result - Labs CBC & Chem 7: 09/30/17 05:42 09/30/17 05:42 Labs: Short CBC 09/30/17 Range/Units 05:42 WBC 2.7 L (4.3-11.1) K/mcL Hgb 13.7 D (12.9-16.9) g/dL Hct 40.9 (37.5-50.1) % Plt Count 71 L (140-400) K/mcL Neutrophils # 1.9 (1.6-8.9) K/mcL BMP 09/30/17 05:42 Sodium 139 Potassium 3.4 L Chloride 100 Carbon Dioxide 29 BUN 9 Creatinine 0.81 Glucose 77 Calcium 8.9 - ABG Interpretation ABG results: PT/INR, D-dimer PT 11.5 Seconds (9.4-12.1) 09/29/17 17:01 - Attending Attestation I examined this patient and my medical decision-making was reviewed with the Resident Physician on 09/30/17. I agree with the documented findings, disposition and treatment plan as described except to the extent set forth below. Mr Catalan is in observation for acute alcohol withdrawal and abd pain. He remains moderate to high risk at this time. Mr Catalan is upset as his dad is in ICU after CO. He has not required much Ativan for ETOH. He still has abd pain - EGD to be done tomorrow. No fever or chills. Exam Alert. Comfortable but anxious Mucus membranes dry Heart reg No wheeze Abd tender epigastric I/P 1. ETOH withdrawal 2. Abd pain Further diagnoses and plan as above.
[2017-09-30 11:24] LABS: Hepatitis A Antibody IgM Nonreactive (Nonreactive); Hepatitis B Core IgM Nonreactive (Nonreactive); Hepatitis B Surface Antigen Nonreactive (Nonreactive); Hepatitis C Virus Antibody Nonreactive (Nonreactive)
[2017-09-30] MEDS: *HR* LORazepam 2 MG/ML VIAL IVP PRN ×3 (11:52→21:39)
--- NOTE | 2017-09-30 12:52 | Gastroenterology Consult Note ---
<Isabella Matthews - Last Filed: 10/01/17 16:32> Date of Encounter: 10/01/17 Time of Encounter: 11:00 - Assessment and plan (1) Abnormal CT of the abdomen Status: Acute Assessment and plan: CT shows mural thickening of distal esophagus, will proceed with EGD today. (2) Nausea with vomiting, unspecified Status: Acute Assessment and plan: May have alcoholic gastritis, EGD today, continue PPI. Qualifiers: Vomiting type: unspecified Vomiting Intractability: non-intractable Qualified Code(s): R11.2 - Nausea with vomiting, unspecified (3) Abnormal LFTs Status: Acute Assessment and plan: Hepatitis profile pending, US shows fatty liver. - Time Spent With Patient Total time spent is greater than 50% in coordination of care (as documented) at patient's floor/unit and/or counseling patient: GI History of Present Illness - Data of Consult Consult date: 09/30/17 Requesting Physician: Will Stewart DO - Consult Narrative Reason for consult: nausea and vomiting, abnormal CT History of present illness: Mr. Catalan is a 37 year old male with a pmhx of opiate abuse, IV drug abuse, current alcohol abuse, known fatty liver disease presented to the emergency department with unrelenting nausea and vomiting for the past week. He states he was vomiting constantly and could not keep even water down. He complained of epigastric and RUQ pain. He states he has been unable to eat in the past week and also has not had a BM for the past week. He denies hematemesis, fever, diarrhea, bloody or tarry stools. He has a history of alcohol abuse and reports one month ago receiving "a shot to help him with his alcohol abuse down at [facility]". He states that he has really not felt well since he received a shot, as he has continued to drink up to 8 shots of vodka a day. He reports drinking a couple of shots of vodka the night before being admitted to the hospital. He does have a history of IV drug use and opiate abuse but denies any recent drug abuse. He denies any known history of hepatitis C and says that he has been tested prior without any findings. He has not noticed any blood in his vomit. He has been constipated with only 1 bowel movement in the past week. CT abdomen showed mural thickening of the distal esophagus and trace free fluid in the pelvis. US showed fatty liver. Platelets are 71, T bile was 2.8, ast 212, alt 125. Viral hepatitis profile is pending. NSAIDS: aleve on occasion Anticoagulants: none EGD: denies COLON: denies Past Med Surg Social Fam HX - Past Medical History Medical history: asthma, liver disease, renal disease Psychiatric history: anxiety - Social History Smoking Status: Former smoker Smokeless Tobacco Status: Yes Alcohol use: occasionally Drug use: none - Family History Grandfather Living Status: Hx Family GI Disorders: Yes (Cirrhosis) Hx Family Psychosocial Disorders: Yes (Alcohol abuse) Review of Systems: GI: as per [facility] GENERAL: denies fever, has some chills EYES: denies yellow discoloration ENT: denies pain with swallowing or difficulty swallowing CARDIO: denies chest pain, palpitations RESP: No Shortness of breath with exertion : denies change in color of urine NEURO: weakness HEME: Denies any bruising MS: chronic joint and back pain DERM: denies rash or itching PSYCH: history of anxiety and depression - Constitutional Vitals: Temp Pulse Resp BP Pulse Ox 98.9 F 73 16 131/85 97 09/30/17 10:29 09/30/17 10:29 09/30/17 10:29 09/30/17 10:29 09/30/17 10:29 Exam: CONSTITUTIONAL:~alert, no acute distress.~HEAD:~normocephalic.~EYES:~no jaundice.~NECK:~no obvious swelling.~HEART:~regular rate and rhythm, no murmurs. ~LUNGS:~bilateral good air entry.~ABDOMEN:~non distended, soft, doffisely tender , no masses palpable, no organomegaly.~RECTAL EXAM:~Deferred.~EXTREMITIES:~no clubbing, cyanosis or edema.~SKIN:~no stigmata of chronic liver disease, pallor noted.~NEUROLOGIC:~no obvious focal defect.~~~~ Results - Labs CBC & Chem 7: 10/01/17 05:53 10/01/17 05:53 Labs: Last Result Calcium 8.9 mg/dL (8.6-10.8) 09/30/17 05:42 Troponin I 0.01 ng/mL (0-0.03) 09/29/17 11:42 Triglycerides 70 mg/dL (< 150) 09/29/17 17:01 Urine Opiates Screen Negative ng/mL ([id number]) 09/29/17 11:33 Entire Visit Hgb 13.7 g/dL (12.9-16.9) D 09/30/17 05:42 Hct 40.9 % (37.5-50.1) 09/30/17 05:42 PT 11.5 Seconds (9.4-12.1) 09/29/17 17:01 Total Bilirubin 2.8 mg/dL (0.2-1.2) H 09/29/17 11:42 AST 212 Units/L (5-34) H 09/29/17 11:42 ALT 125 Units/L (0-55) H 09/29/17 11:42 Lipase 49 Units/L (8-78) 09/29/17 11:42 - ABG ABG results: PT/INR, D-dimer PT 11.5 Seconds (9.4-12.1) 09/29/17 17:01 Consult Discharge Plan - Plan Instructions: Diet for Ulcers and Gastritis (GEN) Referrals: Rakan Cowan MD [Partnered Physician] - (3 weeks) Luz Faria [Advanced Practice Nurse] - 10/10/17 1:00 pm Prescriptions: Folic Acid 1 mg PO DAILY #30 tablet LORazepam [Ativan] 1 mg PO TID PRN #9 tablet PRN Reason: Anxiety Omeprazole [PriLOSEC] 40 mg PO BIDAC #60 capsule. Sucralfate [Carafate] 1 gm PO QIDAC #120 tablet Thiamine (B-1) [Vitamin B-1] 100 mg PO DAILY #30 tablet Vitamin B Complex/Vit C/Vit E [Stresstab] 1 each PO DAILY #30 tablet <Rakan Cowan - Last Filed: 10/05/17 09:14> Date of Encounter: 10/01/17 - Time Spent With Patient Total time spent is greater than 50% in coordination of care (as documented) at patient's floor/unit and/or counseling patient: GI History of Present Illness - Data of Consult Requesting Physician: Will Stewart DO - Consult Narrative History of present illness: Mr. Catalan is a 37 year old male - Constitutional Vitals: Temp Pulse Resp BP Pulse Ox 98.2 F 83 16 117/82 98 10/02/17 06:33 10/02/17 06:33 10/02/17 06:33 10/02/17 06:33 10/02/17 06:33 Results - Labs CBC & Chem 7: 10/02/17 04:22 10/02/17 04:22 Labs: Last Result Calcium 9.6 mg/dL (8.6-10.3) 10/02/17 04:22 Troponin I 0.01 ng/mL (0-0.03) 09/29/17 11:42 Triglycerides 70 mg/dL (< 150) 09/29/17 17:01 Urine Opiates Screen Negative ng/mL (Uftrpu=[id number]) 09/29/17 11:33 Entire Visit Hgb 15.6 g/dL (12.9-16.9) 10/02/17 04:22 Hct 46.0 % (37.5-50.1) 10/02/17 04:22 PT 11.5 Seconds (9.4-12.1) 09/29/17 17:01 Total Bilirubin 2.2 mg/dL (0.2-1.2) H 10/01/17 05:53 AST 247 Units/L (5-34) H 10/01/17 05:53 ALT 171 Units/L (0-55) H 10/01/17 05:53 Lipase 49 Units/L (8-78) 09/29/17 11:42 - ABG ABG results: PT/INR, D-dimer PT 11.5 Seconds (9.4-12.1) 09/29/17 17:01 - Attending Attestation I have personally performed a face to face evaluation on this patient. I have reviewed and agree with the care plan. History and Exam by me shows:
[2017-09-30] MEDS: *HR* Morphine 2 MG/ML SYRINGE IVP PRN (22:21)
[2017-10-01] MEDS: Pantoprazole 40 MG VIAL IVP SCH ×2 (05:33→16:30)
[2017-10-01] MEDS: *HR* Morphine 2 MG/ML SYRINGE IVP PRN ×2 (05:45→21:00)
[2017-10-01] MEDS: *HR* LORazepam 2 MG/ML VIAL IVP PRN (05:45)
[2017-10-01 06:36] LABS: Alanine Aminotransferase 171 Units/L (0-55); Albumin 3.2 g/dL (3.5-5.0); Albumin/Globulin Ratio 0.9 (1.1-2.2); Alkaline Phosphatase 83 Units/L (38-126); Aspartate Amino Transferase 247 Units/L (5-34); BUN/Creatinine Ratio 11 (6-26); Bilirubin,Direct 0.8 mg/dL (0.0-0.5); Bilirubin,Indirect 1.4 mg/dL (0.0-1.2); Bilirubin,Total 2.2 mg/dL (0.2-1.2); Blood Urea Nitrogen 8 mg/dL (8-26); Calcium 9.5 mg/dL (8.6-10.8); Carbon Dioxide 24 mEq/L (19-29); Chloride 100 mEq/L (98-109); Globulin 3.6 g/dL (2.4-3.5); Glucose 89 mg/dL (70-99); Magnesium 1.7 mg/dL (1.6-2.6); Osmolality,Calculated 280 (280-300); Phosphorous 2.5 mg/dL (2.3-4.7); Sodium 136 mEq/L (136-145); Total Protein 6.8 g/dL (6.0-8.3); eGFR For African Americans > 60 (> 60); eGFR For Non-African Americans > 60 (> 60)
[2017-10-01 06:40] LABS: Potassium 4.5 mEq/L (3.5-4.5)
[2017-10-01 06:50] LABS: Immature Platelets 6.6 % (1.1-6.1)
--- NOTE | 2017-10-01 08:08 | Internal Med Progress Note ---
Date of Encounter: 10/01/17 Time of Encounter: 08:00 - Assessment and plan (1) Alcoholic hepatitis Current Visit: Yes Status: Acute Assessment and plan: Patient elevated liver enzymes are consistent with alcohol abuse. His hepatitis panel was negative. The patient was counseled on the importance of alcohol cessation. Qualifiers: Ascites presence: without ascites Qualified Code(s): K70.10 - Alcoholic hepatitis without ascites (2) Abdominal pain of unknown etiology Current Visit: Yes Status: Acute Assessment and plan: We will continue with symptomatic treatment. The patient is seen by GI with plans for an EGD this morning. Continue with antiemetics and PPI. Continue with pain control with tramadol. Please note the patient does have a history of IV drug abuse. (3) Nausea with vomiting, unspecified Current Visit: Yes Status: Acute Assessment and plan: As above. Qualifiers: Vomiting type: unspecified Vomiting Intractability: non-intractable Qualified Code(s): R11.2 - Nausea with vomiting, unspecified (4) Dehydration Current Visit: Yes Status: Acute Assessment and plan: Continue with IV hydration. I have restarted normal saline at 100 mL an hour. (5) Alcohol abuse Current Visit: Yes Status: Acute Assessment and plan: Continued serial protocol. The patient is also on folic acid and thiamine and multivitamins. (6) Esophagitis Current Visit: Yes Status: Suspected Assessment and plan: This is seen on the CT nose and earlier in his stay. His planned EGD by GI. We will follow-up on that. In the meantime continue with PPI. (7) DVT prophylaxis Current Visit: Yes Status: Acute Assessment and plan: heparin subcutaneous. - Subjective Interval history: Patient was seen and examined this morning. He continues to have bowel pain. He tells me that EGD was pushed to this morning. Not exactly sure what happened that it was not done yesterday. He continues to use Ativan he is about 3-4 mg since yesterday. He has not had any by mouth since yesterday midnight. He does not feel significant nausea however he says the pain in the belly feels generalized and feels like spasms. - Constitutional Vitals: Temp Pulse Resp BP Pulse Ox 98.8 F 73 12 128/92 97 10/01/17 07:13 10/01/17 04:04 10/01/17 07:13 10/01/17 07:13 10/01/17 07:13 General appearance: Present: mild distress, A&O X 3, answers questions appropriately Exam: GEN: NAD CVS: RRR. S1, S2, No m/r/g RESP: CTAB ABD: Soft, NT, ND, +BS EXT: No edema. 2+ DP, No rashes NEURO: Nonfocal Internal Medicine: Result - Labs CBC & Chem 7: 10/01/17 05:53 10/01/17 05:53 Labs: BMP 10/01/17 05:53 Sodium 136 Potassium 4.5 D Chloride 100 Carbon Dioxide 24 BUN 8 Creatinine 0.75 Glucose 89 Calcium 9.5 Liver Function 10/01/17 Range/Units 05:53 Total Bilirubin 2.2 H (0.2-1.2) mg/dL Direct Bilirubin 0.8 H (0.0-0.5) mg/dL AST 247 H (5-34) Units/L ALT 171 H (0-55) Units/L Alkaline Phosphatase 83 (38-126) Units/L Albumin 3.2 L (3.5-5.0) g/dL - ABG Interpretation ABG results: PT/INR, D-dimer PT 11.5 Seconds (9.4-12.1) 09/29/17 17:01 Consult Discharge Plan - Plan Referrals: Iris Ambrose MD [Primary Care Provider] -
[2017-10-01] MEDS ORDERED: 0.9 % Sodium Chloride 1,000 ML IVC SCH (08:15)
[2017-10-01 08:19] LABS: Red Blood Count 4.92 M/mcL (4.19-5.50)
[2017-10-01 08:20] LABS: Eosinophils # 0.1 K/mcL (0.0-0.6); Hematocrit 47.3 % (37.5-50.1); Mean Corpuscular HGB Conc 33.8 g/dL (31.6-35.5); Mean Corpuscular Hemoglobin 32.5 pg (28.0-33.3); Mean Corpuscular Volume 96.1 fL (83.0-100.0); Mean Platelet Volume 12.5 fL (9.4-12.4); Red Cell Distribution Width 13.2 % (11.5-14.5)
[2017-10-01] MEDS: cloNIDine HCl 0.1 MG TABLET PO SCH ×2 (08:23→21:00)
[2017-10-01] MEDS: Vitamin B Complex/Vit C/Vit E 1 EACH TABLET PO SCH (08:23)
[2017-10-01] MEDS: Nicotine 21 MG PATCH.TD24 TD SCH (08:23)
[2017-10-01] MEDS: Folic Acid 1 MG TABLET PO SCH (08:23)
[2017-10-01] MEDS: Thiamine (B-1) 100 MG TABLET PO SCH (09:00)
[2017-10-01 09:07] LABS: Platelet Count 49 K/mcL (140-400)
[2017-10-01 09:16] LABS: Basophils # 0.1 K/mcL (0.0-0.2); Lymphocytes # 1.2 K/mcL (0.6-4.6); Monocytes # 0.3 K/mcL (0.0-1.3); Neutrophils # 1.1 K/mcL (1.6-8.9); Platelet Estimate Marked Decrease (Normal)
--- NOTE | 2017-10-01 10:01 | Electrocardiograph Report ---
[place] [id number] Test Date: 2017-09-29 Pat Name: Ramo Catalan Department: 104 Room: 3A16 Gender: M [employer] Professional: : 1980 Requested By: Carlos Hill Order Number: [id number] Reading MD: Mark Wu DO Measurements Intervals [place] Rate: 111 P: 50 AR: 147 QRS: 44 QRSD: 85 T: 32 QT: 320 QTc: 385 Interpretive Statements SINUS TACHYCARDIA Electronically Signed On 10-01-2017 9:59:37 EST by Mark Wu DO
--- NOTE | 2017-10-01 11:40 | Anesthesia Evaluation PreOp ---
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 Hand sx) Alcohol Use: none, heavy Drug use: IV Drug Use Medications and Allergies Mv-Mn/FA/Vit K/Lycop/Lut/Coq10 [Daily Multivitamin Capsule] 1 tab PO DAILY 09/29 [History] Naproxen Sodium [Aleve] 220 mg PO BID PRN 09/29/17 [History] 3 Allergy/AdvReac Type Severity Reaction Status Date / Time No Known Allergies Allergy Verified 09/29/17 15:08 - Meds/Allergy Pre-op Review Medications Reviewed: Yes Allergies Reviewed: Yes Beta Blockers on Current Med List: No Anesthesia Results - Labs 10/01/17 05:53 10/01/17 05:53 - Imaging EKG: image reviewed (ST) Anesthesia Exam O2 Sat Height 1.83 m Weight 77.1 kg O2 Sat by Pulse Oximetry 99 O2 Sat by Pulse Oximetry 97 O2 Sat by Pulse Oximetry 96 O2 Sat by Pulse Oximetry 98 O2 Sat by Pulse Oximetry 97 O2 Sat by Pulse Oximetry 97 Vital Signs Temp Pulse Resp BP Pulse Ox 98.4 F 134 18 120/93 95 09/29/17 11:23 09/29/17 11:23 09/29/17 11:23 09/29/17 11:23 09/29/17 11:23 Vital Signs/O2 Sat, Most Current Temp Pulse Resp BP Pulse Ox 98.6 F 82 16 135/93 99 10/01/17 11:18 10/01/17 11:18 10/01/17 11:18 10/01/17 11:18 10/01/17 11:18 - HEENT Pupil (Motor): Pupils equal, EOMI Mallampati: II Teeth: Normal Oral Opening: Greater than 3 - LOG CHAIN WORKER LOC: Oriented 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
[2017-10-01] MEDS ORDERED: Tetracaine/Benzocaine/Butamben 200MG/SPRAY (100SPY/BOT) MM ONE (11:50)
[2017-10-01] MEDS ORDERED: Simethicone 40 MG/0.6 ML MLS IR ONE (11:50)
[2017-10-01] MEDS ORDERED: Lidocaine -MPF 2% 2 ML VIAL ONE (12:25)
[2017-10-01] MEDS ORDERED: *HR* Propofol 200 MG/20 ML VIAL IVP ONE (12:25)
--- NOTE | 2017-10-01 12:42 | Anesthesia Evaluation Post Op ---
<Art Copeland A - Last Filed: 10/01/17 12:40> Date of Encounter: 10/01/17 Time of Encounter: 12:40 - Vital Signs Vital Signs: 124/84, HR 76, SpO2 98%, RR 16, - Lungs Lungs: Clear Ascult./Percussion - Airway Airway: Non-obstructed - Cardiovascular Regular Rate - Mental Status Mental Status: Alert & Oriented, Answers Appropriately - Pain Pain Scale: 0 Pain Scale used: Numeric (1 - 10) - Nausea Vomiting Nausea Vomiting: Not Present - Hydration Hydration: NPO, Has not voided - Discharge PostOp Status: Transfer Patient to floor <Aaron Bray - Last Filed: 10/01/17 12:47> Date of Encounter: 10/01/17
[2017-10-01] MEDS: *HR* LORazepam 1 MG TABLET PO PRN (14:37)
[2017-10-01] MEDS: *HR* Heparin 5,000 UNIT/ML VIAL SQ SCH ×2 (14:37→21:00)
[2017-10-01] MEDS: traMADol 50 MG TABLET PO PRN (16:30)
[2017-10-01] MEDS: Ondansetron 4 MG/2 ML VIAL IVP PRN (21:00)
[2017-10-02] MEDS: *HR* LORazepam 1 MG TABLET PO PRN ×2 (01:38→08:53)
[2017-10-02 05:05] LABS: Mean Corpuscular Hemoglobin 31.8 pg (28.0-33.3)
[2017-10-02 05:07] LABS: Basophils % 0.9 %; Eosinophils # 0.1 K/mcL (0.0-0.6); Eosinophils % 3.5 %; Hemoglobin 15.6 g/dL (12.9-16.9); Immature Platelets 5.5 % (1.1-6.1); Lymphocytes % 30.3 %; Mean Corpuscular HGB Conc 33.9 g/dL (31.6-35.5); Mean Corpuscular Volume 93.9 fL (83.0-100.0); Mean Platelet Volume 9.8 fL (9.4-12.4); Monocytes # 0.5 K/mcL (0.0-1.3); Monocytes % 14.2 %; Neutrophils # 1.6 K/mcL (1.6-8.9); Red Cell Distribution Width 12.9 % (11.5-14.5); Segmented Neutrophils % 51.1 %
[2017-10-02 05:26] LABS: BUN/Creatinine Ratio 11 (6-26); Blood Urea Nitrogen 9 mg/dL (6-20); Calcium 9.6 mg/dL (8.6-10.3); Carbon Dioxide 31 mEq/L (23-29); Chloride 99 mEq/L (98-107); Glucose 113 mg/dL (70-105); Magnesium 1.4 mg/dL (1.6-2.6); Osmolality,Calculated 285 (280-300); Phosphorous 2.7 mg/dL (2.7-4.5); Potassium 3.3 mEq/L (3.5-5.1); Sodium 138 mEq/L (136-145); eGFR For African Americans > 60 (> 60); eGFR For Non-African Americans > 60 (> 60)
[2017-10-02 05:39] LABS: Platelet Count 87 K/mcL (140-400)
[2017-10-02] MEDS: Pantoprazole 40 MG VIAL IVP SCH (06:29)
[2017-10-02] MEDS: *HR* Heparin 5,000 UNIT/ML VIAL SQ SCH (06:29)
[2017-10-02 06:34] VITALS: BP 117/82
[2017-10-02] MEDS ORDERED: Sucralfate 1 GM TABLET PO SCH (08:30)
[2017-10-02] MEDS ORDERED: Magnesium Oxide 400 MG TABLET PO ONE (08:33)
[2017-10-02] MEDS: Nicotine 21 MG PATCH.TD24 TD SCH (08:44)
[2017-10-02] MEDS: Folic Acid 1 MG TABLET PO SCH (08:44)
[2017-10-02] MEDS: Thiamine (B-1) 100 MG TABLET PO SCH (08:44)
[2017-10-02] MEDS: cloNIDine HCl 0.1 MG TABLET PO SCH (08:44)
[2017-10-02] MEDS: Vitamin B Complex/Vit C/Vit E 1 EACH TABLET PO SCH (08:44)
--- NOTE | 2017-10-02 08:44 | Discharge Summary ---
Date of Encounter: 10/02/17 Time of Encounter: 08:40 - Discharge Diagnosis (1) Esophageal ulcer without bleeding Priority: Primary Status: Acute (2) Alcoholic hepatitis Priority: Secondary Status: Acute Qualifiers: Ascites presence: without ascites Qualified Code(s): K70.10 - Alcoholic hepatitis without ascites (3) Abdominal pain of unknown etiology Priority: Primary Status: Acute (4) Nausea with vomiting, unspecified Priority: Primary Status: Acute Qualifiers: Vomiting type: unspecified Vomiting Intractability: non-intractable Qualified Code(s): R11.2 - Nausea with vomiting, unspecified (5) Dehydration Priority: Primary Status: Acute (6) Alcohol abuse Priority: Primary Status: Acute (7) Esophagitis Priority: Primary Status: Suspected - Discharge Medications Prescriptions: Folic Acid 1 mg PO DAILY #30 tablet LORazepam [Ativan] 1 mg PO TID PRN #9 tablet PRN Reason: Anxiety Omeprazole [PriLOSEC] 40 mg PO BIDAC #60 capsule. Sucralfate [Carafate] 1 gm PO QIDAC #120 tablet Thiamine (B-1) [Vitamin B-1] 100 mg PO DAILY #30 tablet Vitamin B Complex/Vit C/Vit E [Stresstab] 1 each PO DAILY #30 tablet Home Medications: Mv-Mn/FA/Vit K/Lycop/Lut/Coq10 [Daily Multivitamin Capsule] 1 tab PO DAILY 09/29 [History] Naproxen Sodium [Aleve] 220 mg PO BID PRN 09/29/17 [History] Folic Acid 1 mg PO DAILY #30 tablet 10/02/17 [Rx] LORazepam [Ativan] 1 mg PO TID PRN #9 tablet 10/02/17 [Rx] Omeprazole [PriLOSEC] 40 mg PO BIDAC #60 capsule. 10/02/17 [Rx] Sucralfate [Carafate] 1 gm PO QIDAC #120 tablet 10/02/17 [Rx] Thiamine (B-1) [Vitamin B-1] 100 mg PO DAILY #30 tablet 10/02/17 [Rx] Vitamin B Complex/Vit C/Vit E [Stresstab] 1 each PO DAILY #30 tablet 10/02/17 [ Rx] Allergies/Adverse Reactions: 3 Allergy/AdvReac Type Severity Reaction Status Date / Time No Known Allergies Allergy Verified 09/29/17 15:08 Date of admission: 09/29/17 16:06 Primary care physician: Iris Ambrose Consults: 09/29/17 16:18 Consult to Consulting Group Analyst [CONS] Routine Reason for SW Consult: Alcohol treatment recommendations. 09/29/17 16:45 Consult to Gastroenterology [CONS] Routine Consulting Provider: Gastroenterology Katherine Reason for Consult: Esophagitis in EtOH abuse. Call Completed: No 09/29/17 16:53 Consult to Nutrition [CONS] Routine Comment: Consulting Provider: NUTRITION Reason for Dietary Consult: Diet Education - Patient Status Disposition: Home, Self-Care Condition: Fair Overall status at discharge: patient is back to baseline - Discharge Instructions Instructions: Diet for Ulcers and Gastritis (GEN) Follow Up With: Rakan Cowan MD [Partnered Physician] - (3 weeks) Luz Faria [Advanced Practice Nurse] - 10/10/17 1:00 pm - Diet and Activity Activity: resume usual activities as tolerated Diet: regular diet Hospital course: Mr. Catalan is a 37 year old male past medical history opiate abuse, IV drug abuse , current alcohol abuse, known fatty liver disease presented to the emergency department with unrelenting nausea and vomiting since 4 couple of days.. He has felt nauseous and vomiting and epigastric discomfort radiating over to his right upper quadrant. He states that he feels like he vomits every 20 minutes has not been able to keep any food or water down and has not tried any medications to help relieve the symptoms. He was admitted to the hospitalist service. He was put on IV fluids. He had a CT abdomen and pelvis done which showed no evidence of bowel obstruction or any acute abnormalities. There was fatty infiltrate of the liver. There was a suggestive presence of extremely minimal trace free fluid within the pelvis which represented abnormal findings in a male patient. Those findings of a small hiatal hernia. I was possible mural thickening involving the distal esophagus finding was nonspecific however raises possibility of changes of mild esophagitis. Because of that we consult with GI who took the patient for an endoscopy. He underwent an EGD which came back showing 4 cratered esophageal ulcers with no bleeding and no stigmata of recent bleeding. Biopsies were taken. The patient was started on Carafate as well as a PPI. He will need follow-up with GI as an outpatient. The following day he was able to tolerate diet with no issues. He did complain of abdominal pain. I advised him to take Tylenol and avoid NSAIDs. I did give him a prescription for 9 pills of Ativan as he had shown significant signs of anxiety while he was hospitalized. I advised him to follow-up with her primary care physician and have follow-up properly with psychiatrist if needed. - Time Spent with Patient Total time spent providing and/or coordinating discharge services: Greater than 30 minutes - Constitutional Vitals: Temp Pulse Resp BP Pulse Ox 98.2 F 83 16 117/82 98 10/02/17 06:33 10/02/17 06:33 10/02/17 06:33 10/02/17 06:33 10/02/17 06:33 General appearance: Present: mild distress, A&O X 3, answers questions appropriately Exam: GEN: NAD CVS: RRR. S1, S2, No m/r/g RESP: CTAB ABD: Soft, NT, ND, +BS EXT: No edema. 2+ DP, No rashes NEURO: Nonfocal
== END 2017-10-02 11:20 | disposition home or self-care (01) ==
LOC: EMEROO 11:16 → INTOOBSV 16:06 → 3ANU 16:06 → SUATTDRO 16:06 → 3ANU 16:26
PROVIDERS: ADMIT Internal Medicine Cardiovascular Disease; ATTEND Internal Medicine
PROC: ENDOEBX (2017-10-01 12:30)

== ENCOUNTER 2017-11-25 17:37 | Observation (INO) ==
[2017-11-25 18:23] LABS: Basophils % 0.2 %; Eosinophils % 0.2 %; Hematocrit 42.8 % (37.5-50.1); Hemoglobin 15.7 g/dL (12.9-16.9); Immature Granulocytes % 0.3 % (0-4); Lymphocytes # 0.8 K/mcL (0.6-4.6); Lymphocytes % 13.9 %; Mean Corpuscular HGB Conc 36.7 g/dL (31.6-35.5); Mean Corpuscular Hemoglobin 31.3 pg (28.0-33.3); Mean Corpuscular Volume 85.4 fL (83.0-100.0); Mean Platelet Volume 10.5 fL (9.4-12.4); Monocytes # 0.7 K/mcL (0.0-1.3); Monocytes % 10.7 %; Neutrophils # 4.5 K/mcL (1.6-8.9); Platelet Count 123 K/mcL (140-400); Red Blood Count 5.01 M/mcL (4.19-5.50); Red Cell Distribution Width 12.1 % (11.5-14.5); Segmented Neutrophils % 74.7 %
[2017-11-25 18:33] LABS: Alanine Aminotransferase 148 Units/L (7-52); Albumin 5.2 g/dL (3.5-5.7); Albumin/Globulin Ratio 1.5 (1.1-2.2); Alkaline Phosphatase 80 Units/L (34-104); Amylase 60 Units/L (29-103); Aspartate Amino Transferase 147 Units/L (13-39); BUN/Creatinine Ratio 15 (6-26); Bilirubin,Total 2.9 mg/dL (0.3-1.0); Blood Urea Nitrogen 16 mg/dL (6-20); Calcium 11.7 mg/dL (8.6-10.3); Carbon Dioxide 27 mEq/L (23-29); Chloride 73 mEq/L (98-107); Globulin 3.5 g/dL (2.4-3.5); Glucose 111 mg/dL (70-105); Lipase 64 Units/L (11-82); Osmolality,Calculated 266 (280-300); Potassium 2.7 mEq/L (3.5-5.1); Sodium 127 mEq/L (136-145); Total Protein 8.7 g/dL (6.4-8.9); eGFR For African Americans > 60 (> 60); eGFR For Non-African Americans > 60 (> 60)
[2017-11-25 19:57] LABS: Bilirubin,Urine Large (Negative); Blood,Urine Small (Negative); Clarity,Urine Turbid (Clear); Color,Urine Orange (Yellow); Glucose,Urine (UA) Normal (Normal); Ketones,Urine 80 mg/dL (Negative); Leukocyte Esterase,Urine Small (Negative); Nitrite,Urine Positive (Negative); Protein,Urine >=300 mg/dL (Neg-Trace); Urobilinogen,Urine Normal (Normal)
[2017-11-25 20:00] LABS: Bacteria,Urine None Seen per hpf (None-Few); Squamous Epithelial Cell,Urine Many per lpf (None-Few)
[2017-11-25 20:19] LABS: Hyaline Casts,Urine Many per lpf (None-Few); Renal Epithelial Cells,Urine Few per hpf (None-Few)
[2017-11-25] MEDS ORDERED: 0.9 % Sodium Chloride 1,000 ML IVC ONE (22:28)
[2017-11-25] MEDS ORDERED: Ondansetron 4 MG/2 ML VIAL IVP STA (22:29)
[2017-11-25] MEDS ORDERED: *HR* FentaNYL (PF) 100 MCG/2 ML VIAL IVP ONE (22:30)
[2017-11-26] MEDS ORDERED: Metoclopramide 10 MG/2 ML VIAL IVP ONE (00:13)
--- NOTE | 2017-11-26 00:16 | Emergency Department Note ---
Disposition Clinical Impression: Hypokalemia, Hyponatremia Intractable nausea and vomiting Qualifiers: Vomiting type: unspecified Qualified Code(s): R11.2 - Nausea with vomiting, unspecified Disposition: Admitted As Inpatient Condition: Good Referrals: Iris Ambrose MD [Primary Care Provider] - Forms: ED Satisfaction Letter, Work/School Release Abdominal Pain HPI - General Chief Complaint: ED Abdominal Pain Stated Complaint: ABD, VOMITING X4DAYS EVERY 20-30 MIN Time Seen by Provider: 11/25/17 22:07 Source: patient Mode of arrival: ambulatory Limitations: no limitations Nursing Notes Reviewed: Yes Vital Signs Reviewed: Yes - History of Present Illness HPI Narrative: Patient presents to the emergency department today for evaluation of abdominal pain with associated nausea and vomiting. Patient states he has not been able to keep anything down for last 4 days. States similar episode last year where he had ulcers in dilated gallbladder duct. Patient states that he was sent home with medications that have been helping him until recently. Patient denies any recent aggravating factor. Patient with significant tenderness of right upper quadrant. Labs and ultrasound will be ordered. Pain Scale: 10 - Related Data Home Medications Medication Instructions Recorded Confirmed Mv-Mn/FA/Vit K/Lycop/Lut/Coq10 1 tab PO DAILY 09/29/17 09/29/17 [Daily Multivitamin Capsule] Naproxen Sodium [Aleve] 220 mg PO BID PRN 09/29/17 09/29/17 Previous Rx's Medication Instructions Recorded Folic Acid 1 mg PO DAILY #30 tablet 10/02/17 LORazepam [Ativan] 1 mg PO TID PRN #9 tablet 10/02/17 Omeprazole [PriLOSEC] 40 mg PO BIDAC #60 capsule. 10/02/17 Sucralfate [Carafate] 1 gm PO QIDAC #120 tablet 10/02/17 Thiamine (B-1) [Vitamin B-1] 100 mg PO DAILY #30 tablet 10/02/17 Vitamin B Complex/Vit C/Vit E 1 each PO DAILY #30 tablet 10/02/17 [Stresstab] Allergies Allergy/AdvReac Type Severity Reaction Status Date / Time No Known Allergies Allergy Verified 11/25/17 17:40 Review of Systems: CONSTITUTIONAL: Subjective chills HEENT: Eyes: No visual changes. Ears, Nose, Throat: No hearing loss, difficulty talking or unable to swallow. SKIN: No rash or itching. CARDIOVASCULAR: No chest pain, chest pressure or chest discomfort. No palpitations or edema. RESPIRATORY: No shortness of breath, cough or sputum. GASTROINTESTINAL: Abdominal pain with associated nausea and vomiting GENITOURINARY: No burning on urination or hematuria. NEUROLOGICAL: No headache, dizziness, syncope, paralysis, ataxia, numbness or tingling in the extremities. No change in bowel or bladder control. MUSCULOSKELETAL: No muscle pain, back pain, joint pain or stiffness. Abdominal Pain PMH - Past Medical History Medical history: Reports: asthma, liver disease, renal disease Male Surgical History: Reports: orthopedic, other Psychiatric history: Reports: anxiety - Social History Smoking status: Former smoker Alcohol use: Reports: occasionally Drug use: Reports: none Physical Exam General: Dry heaving and discomfort secondary to pain Head: Normocephalic Atraumatic Eyes: PERRL, EOMI ENT: Airway patent, no stridor Neck: supple, no meningismus Chest: Lungs clear to auscultation bilateral Cardiac: Regular rate and rhythm, no murmurs, rubs or gallops Abdomen: Patient with significant right upper quadrant tenderness. Positive guarding positive rebound. Musculoskeletal: Calves symmetric, nontender, no palpable cord Skin: No rash, normal skin tone Neuro: Alert and Oriented to person, place, and time; No focal deficit, CN 2-12 symmetric and intact - General Limitations: no limitations General appearance: alert Course - Reevaluation(s) Reevaluation #1: For sound with sludge and mildly dilated gallbladder duct. Patient with significant which white imbalances. Potassium has been given. On reevaluation of the patient his abdominal pain is significantly improved is no longer having as much guarding. Patient does still have tenderness right upper quadrant. Patient requesting more nausea medication. Patient will be admitted for intractable nausea vomiting and electron imbalances. Urinalysis is likely due to bilirubin. A dose of ceftriaxone has been given awaiting cultures. - Consultations Consultation #1: Discussed with Dr. Gruber. Pt accepted for admission. Vital Signs Temperature 98.5 F 11/25/17 17:41 Pulse Rate 132 11/25/17 17:41 Respiratory Rate 20 11/25/17 17:41 Blood Pressure 145/106 11/25/17 17:41 O2 Sat by Pulse Oximetry 95 11/25/17 17:41 Temperature 98.5 F 11/25/17 17:41 Pulse Rate 96 11/25/17 23:52 Respiratory Rate 16 11/25/17 22:39 Blood Pressure 146/99 11/25/17 23:52 O2 Sat by Pulse Oximetry 100 11/25/17 23:52 Oxygen Delivery Oxygen Delivery Room Air Abdominal Pain - Lab Data Result diagrams: 11/25/17 17:57 11/25/17 17:57 Lab Results 11/25/17 11/25/17 11/25/17 Range/Units 17:57 17:57 19:40 WBC 6.1 (4.3-11.1) K/mcL RBC 5.01 (4.19-5.50) M/mcL Hgb 15.7 (12.9-16.9) g/dL Hct 42.8 (37.5-50.1) % MCV 85.4 (83.0-100.0) fL MCH 31.3 (28.0-33.3) pg MCHC 36.7 H (31.6-35.5) g/dL RDW 12.1 (11.5-14.5) % Plt Count 123 L (140-400) K/mcL MPV 10.5 (9.4-12.4) fL Immature Gran % 0.3 (0-4) % Seg Neutrophils % 74.7 % Lymphocytes % 13.9 % Monocytes % 10.7 % Eosinophils % 0.2 % Basophils % 0.2 % Neutrophils # 4.5 (1.6-8.9) K/mcL Lymphocytes # 0.8 (0.6-4.6) K/mcL Monocytes # 0.7 (0.0-1.3) K/mcL Eosinophils # 0.0 (0.0-0.6) K/mcL Basophils # 0.0 (0.0-0.2) K/mcL Sodium 127 L (136-145) mEq/L Potassium 2.7 L (3.5-5.1) mEq/L Chloride 73 L (98-107) mEq/L Carbon Dioxide 27 (23-29) mEq/L BUN 16 (6-20) mg/dL Creatinine 1.06 (0.70-1.30) mg/dL Est GFR ( Amer) > 60 (> 60) Est GFR (Non-Af Amer) > 60 (> 60) BUN/Creatinine Ratio 15 (6-26) Glucose 111 H (70-105) mg/dL Calculated Osmolality 266 L (280-300) Calcium 11.7 H (8.6-10.3) mg/dL Total Bilirubin 2.9 H (0.3-1.0) mg/dL AST 147 H (13-39) Units/L ALT 148 H (7-52) Units/L Alkaline Phosphatase 80 (34-104) Units/L Serum Total Protein 8.7 (6.4-8.9) g/dL Albumin 5.2 (3.5-5.7) g/dL Globulin 3.5 (2.4-3.5) g/dL Albumin/Globulin Ratio 1.5 (1.1-2.2) Amylase 60 (29-103) Units/L Lipase 64 (11-82) Units/L Urine Color [place] A (Yellow) Urine Clarity Turbid A (Clear) Urine pH 6.0 (5.0-8.0) pH Units Ur Specific [place] 1.030 H (1.010-1.025) Urine Protein >=300 H (Neg-Trace) mg/dL Urine Glucose (UA) Normal (Normal) mg/dL Urine Ketones 80 H (Negative) mg/dL Urine Blood Small H (Negative) Urine Nitrite Positive A (Negative) Urine Bilirubin Large H (Negative) Urine Urobilinogen Normal (Normal) mg/dL Ur Leukocyte Esterase Small H (Negative) Urine Microscopic RBC 5-15 H (0-3) per hpf Urine Microscopic WBC 5-15 H (0-3) per hpf Ur Squamous Epith Cells Many H (None-Few) per lpf Ur Renal Epithelial Cell Few (None-Few) per hpf Urine Bacteria None Seen (None-Few) per hpf Hyaline Casts Many H (None-Few) per lpf Ur Culture Indicated? NO. (NO) Attestation Statement - Attestation Attestation: I, Mark Flores MD, personally evaluated this patient and discussed their management with the resident physician. I reviewed the resident's note and agree with the documented findings, medical decision making, and plan of care. 37-year-old male presents to the emergency department with a complaint of epigastric and right upper quadrant abdominal pain for one week with intractable nausea and vomiting for 4 days prior to arrival. No fever. Patient states he had a similar episode 2 months ago. He states he had endoscopy at that time which showed ulcers in his stomach and esophagus. No diarrhea. No GI bleed symptoms. No UTI symptoms. On examination patient is a well-developed well-nourished well-appearing male in no acute distress. He is alert and oriented 3. There is no cyanosis or diaphoresis. Breath sounds are clear and equal bilaterally. Heart regular rate and rhythm with a moderate tachycardia. Abdomen is soft with moderate right upper quadrant and mild epigastric tenderness. No rebound tenderness. No CVA tenderness. Labs reviewed. Gallbladder ultrasound shows some gallbladder sludge and borderline dilation of common bile duct evidence of acute cholecystitis. The hospitalist, Dr. Gruber, was consulted and accepted admission of the patient for intractable nausea and vomiting with electrolyte imbalance.
[2017-11-26] MEDS ORDERED: Pantoprazole 80 MG in Water for inj. (sterile) 10 ML IVP ONE (00:18)
[2017-11-26] MEDS ORDERED: Nicotine 21 MG PATCH.TD24 TD STA (00:25)
--- NOTE | 2017-11-26 01:00 | Internal Med History&Physical ---
Date of Encounter: 11/26/17 Time of Encounter: 00:53 Assessment and Plan (1) Hypokalemia Current visit: Yes Status: Acute I due to nausea and vomiting will replace and recheck in a.m. (2) Hyponatremia Current visit: Yes Status: Acute Was started on IV normal saline (3) Intractable nausea and vomiting Current visit: Yes Status: Acute similar presentation last admission Qualifiers: Vomiting type: unspecified Qualified Code(s): R11.2 - Nausea with vomiting , unspecified (4) Abdominal pain Current visit: No Status: Acute Probable alcoholic gastritis Qualifiers: Abdominal location: right upper quadrant Qualified Code(s): R10.11 - Right upper quadrant pain (5) Alcohol abuse Current visit: No Status: Acute Chronic alcohol abuse (6) Alcoholic hepatitis Current visit: No Status: Acute Qualifiers: Ascites presence: without ascites Qualified Code(s): K70.10 - Alcoholic hepatitis without ascites (7) Tobacco abuse Current visit: No Status: Chronic Internal Medicine - H&P: HPI Chief complaint: nausea and vomitting Admitted From: Emergency Dept Plans for Post Hospital Care: Home History of present illness: Mr. Catalan is a 37 year old male Patient with history of alcohol abuse, fatty liver, opiate abuse, IV drug abuse. Patient presented to the emergency room with 4 days of nausea vomiting abdominal pain has similar episode recent admission had EGD which showed gastritis. Patient being admitted due to dehydration sodium was 127 potassium 2.7. Past Med Surg Social Fam HX - Past Medical History Medical history: asthma, liver disease, renal disease Psychiatric history: anxiety - Social History Smoking Status: Former smoker Smokeless Tobacco Status: Yes Alcohol use: occasionally Drug use: none - Family History Grandfather Living Status: Hx Family GI Disorders: Yes (Cirrhosis) Internal Medicine - H&P: Meds Mv-Mn/FA/Vit K/Lycop/Lut/Coq10 [Daily Multivitamin Capsule] 1 tab PO DAILY 09/29 [History] Naproxen Sodium [Aleve] 220 mg PO BID PRN 09/29/17 [History] Folic Acid 1 mg PO DAILY #30 tablet 10/02/17 [Rx] LORazepam [Ativan] 1 mg PO TID PRN #9 tablet 10/02/17 [Rx] Omeprazole [PriLOSEC] 40 mg PO BIDAC #60 capsule. 10/02/17 [Rx] Sucralfate [Carafate] 1 gm PO QIDAC #120 tablet 10/02/17 [Rx] Thiamine (B-1) [Vitamin B-1] 100 mg PO DAILY #30 tablet 10/02/17 [Rx] Vitamin B Complex/Vit C/Vit E [Stresstab] 1 each PO DAILY #30 tablet 10/02/17 [ Rx] 3 Allergy/AdvReac Type Severity Reaction Status Date / Time No Known Allergies Allergy Verified 11/25/17 17:40 All Systems PM: A 10-system review of systems was performed and is negative for pertinent findings except as documented above in the HPI. - Constitutional Constitutional: no chills, no fever(s), no night sweats - EENT Eyes: no change in vision, no discharge, no pain, no photophobia Ears: no ear discharge, no ear pain, no tinnitus Nose, mouth and throat: no dysphagia, no nasal discharge, no neck pain, no sore throat - Cardiovascular Cardiovascular ROS IM: no chest pain, no diaphoresis, no dyspnea, no lightheadedness, no palpitations, no syncope - Respiratory Respiratory: no cough, no dyspnea, no wheezing, no excessive phlegm production - Gastrointestinal Gastrointestinal: abdominal pain, nausea, vomiting - Musculoskeletal Musculoskeletal ROS IM: no numbness, no tingling - Integumentary Integumentary IM: no rash, no unusual bruising - Neurological Neurological ROS: no confusion, no convulsions, no focal weakness, no numbness, no tingling, no tremor(s) - Constitutional Vitals: Temp Pulse Resp BP Pulse Ox 98.5 F 96 16 146/99 100 11/25/17 17:41 11/25/17 23:52 11/25/17 22:39 11/25/17 23:52 11/25/17 23:52 - Head Head exam: Present: atraumatic, normocephalic - Eye Eye exam: Present: PERRL, conjuntiva pink, sclera anicteric Pupils: Present: PERRL - Neck Neck exam general surgery: Present: supple, trachea midline. Absent: lymphadenopathy - Respiratory Respiratory exam: Present: CTAB. Absent: accessory muscle use, rales, rhonchi, wheezes - Cardiovascular Cardiovascular exam: Present: RRR, +S1, +S2. Absent: diastolic murmur, gallop, rubs, systolic murmur - GI/Abdominal GI/Abdominal exam: Present: normal bowel sounds, soft, no peritoneal signs. Absent: distended, tenderness - Extremities Exam Extremities exam: Present: warm, radial pulses palpable and symmetrical. Absent : calf tenderness, cyanotic, pedal edema - Neurological Exam Neurological exam: Present: CN II-XII intact, oriented X3, no focal deficits. Absent: pronater drift, facial droop, speech deficit - Skin Skin exam: Present: dry, intact Internal Med - H&P Results - Labs CBC & Chem 7: 11/25/17 17:57 11/25/17 17:57 Labs: Short CBC 11/25/17 Range/Units 17:57 WBC 6.1 (4.3-11.1) K/mcL Hgb 15.7 (12.9-16.9) g/dL Hct 42.8 (37.5-50.1) % Plt Count 123 L (140-400) K/mcL Neutrophils # 4.5 (1.6-8.9) K/mcL BMP 11/25/17 17:57 Sodium 127 L Potassium 2.7 L Chloride 73 L Carbon Dioxide 27 BUN 16 Creatinine 1.06 Glucose 111 H Calcium 11.7 H Liver Function 11/25/17 Range/Units 17:57 Total Bilirubin 2.9 H (0.3-1.0) mg/dL AST 147 H (13-39) Units/L ALT 148 H (7-52) Units/L Alkaline Phosphatase 80 (34-104) Units/L Albumin 5.2 (3.5-5.7) g/dL Urine 11/25/17 Range/Units 19:40 Urine Color [place] A (Yellow) Urine Clarity Turbid A (Clear) Urine pH 6.0 (5.0-8.0) pH Units Ur Specific [place] 1.030 H (1.010-1.025) Urine Protein >=300 H (Neg-Trace) mg/dL Urine Glucose (UA) Normal (Normal) mg/dL - Impressions ITS Impressions Chest X-Ray 11/25/17 17:44 IMPRESSION: 1. No acute cardiopulmonary disease. D/ / Richard Murdock MD / Richard Murdock MD Interpreting Provider: Richard Murdock MD Gallbladder Ultrasound 11/25/17 22:27 IMPRESSION: 1. No convincing evidence of cholecystitis. Findings suggestive of gallbladder sludge. 2. Findings suggestive of mildly dilated common bile duct measuring up to 0.7 cm in diameter D/ / Richard Murdock MD / Richard Murdock MD Interpreting Provider: Richard Murdock MD
[2017-11-26] MEDS ORDERED: cefTRIAXone 1,000 MG in Water for inj. (sterile) 20 ML 10 ML IVPB STA (01:06)
[2017-11-26] MEDS ORDERED: *HR* FentaNYL (PF) 100 MCG/2 ML VIAL IVP ONE (01:10)
[2017-11-26] MEDS ORDERED: Naloxone 0.4 MG/ML INJ IVP PRN (01:11)
[2017-11-26] MEDS ORDERED: MOM Conc 10 ML UD.LIQ PO PRN (01:11)
[2017-11-26] MEDS: 0.9 % Sodium Chloride 1,000 ML IVC SCH ×2 (02:48→11:12)
[2017-11-26 05:34] LABS: Alanine Aminotransferase 130 Units/L (7-52); Albumin 4.7 g/dL (3.5-5.7); Albumin/Globulin Ratio 1.7 (1.1-2.2); Alkaline Phosphatase 63 Units/L (34-104); Aspartate Amino Transferase 135 Units/L (13-39); BUN/Creatinine Ratio 18 (6-26); Blood Urea Nitrogen 16 mg/dL (6-20); Calcium 10.4 mg/dL (8.6-10.3); Carbon Dioxide 33 mEq/L (23-29); Chloride 79 mEq/L (98-107); Globulin 2.8 g/dL (2.4-3.5); Glucose 67 mg/dL (70-105); Magnesium 1.3 mg/dL (1.6-2.6); Osmolality,Calculated 265 (280-300); Potassium 3.1 mEq/L (3.5-5.1); Sodium 128 mEq/L (136-145); Total Protein 7.5 g/dL (6.4-8.9); eGFR For African Americans > 60 (> 60); eGFR For Non-African Americans > 60 (> 60)
[2017-11-26] MEDS ORDERED: Ketorolac 15 MG/ML VIAL IVP PRN (06:07)
[2017-11-26] MEDS: Ondansetron ODT 4 MG TAB.RAPDIS SL PRN ×2 (06:35→13:38)
[2017-11-26] MEDS: Sucralfate 1 GM TABLET PO SCH ×4 (08:28→21:52)
[2017-11-26] MEDS ORDERED: NON-FORMULARY MEDICATION 1 EACH EACH (Mv-Mn/Fa/Vit K/Lycop/Lut/Coq10 [Daily Multivitamin C PO SCH (09:00)
[2017-11-26] MEDS: Folic Acid 1 MG TABLET PO SCH (10:39)
[2017-11-26] MEDS: Thiamine (B-1) 100 MG TABLET PO SCH (10:40)
[2017-11-26] MEDS: Vitamin B Complex/Vit C/Vit E 1 EACH TABLET PO SCH (10:40)
[2017-11-26] MEDS ORDERED: *HR* Labetalol 100 MG/20 ML MDV IVP PRN (11:43)
--- NOTE | 2017-11-26 12:04 | Internal Med Progress Note ---
Date of Encounter: 11/26/17 Time of Encounter: 11:57 - Assessment and plan (1) Intractable nausea and vomiting Current Visit: Yes Status: Acute Assessment and plan: 37 year old male presented for intractable nausea and vomiting. Has a known history of gastritis, alcohol abuse, and IV drug abuse. He had a recent admission with an EGD showing gastritis. Patient had hyponatremia and hypokalemia secondary likely from poor PO and N/V. He was been treated with IV fluids and Protonix. A gallbladder ultrasound showed negative for cholecystitis , did show gallbladder sludge, and muldly dilated common bile duct. Bilirubin is elevated on admission at 2.9 and now is 2.0. Assessment: - Intractable N/V - Hypokalemia - Hyponatremia - Alcoholic hepatitis - Elevated blood pressure Plan: - Continue IV hydration - IV protonix BID, Carafate, Zofran prn - Replace electrolytes as needed - Consider GI or Surgery consult based on patient response to treatment. - IV labetolol prn hypertension, avoid hydralazine as patient is tachycardic Qualifiers: Vomiting type: unspecified Qualified Code(s): R11.2 - Nausea with vomiting , unspecified - Constitutional Vitals: Temp Pulse Resp BP Pulse Ox 98.4 F 99 16 127/113 97 11/26/17 08:09 11/26/17 08:09 11/26/17 08:09 11/26/17 08:09 11/26/17 08:09 - Head Head exam: Present: atraumatic, normocephalic - Eye Eye exam: Present: PERRL, conjuntiva pink, sclera anicteric Pupils: Present: PERRL - Neck Neck exam general surgery: Present: supple, trachea midline. Absent: lymphadenopathy - Respiratory Respiratory exam: Present: CTAB. Absent: accessory muscle use, rales, rhonchi, wheezes - Cardiovascular Cardiovascular exam: Present: RRR, +S1, +S2. Absent: diastolic murmur, gallop, rubs, systolic murmur - GI/Abdominal GI/Abdominal exam: Present: normal bowel sounds, soft, no peritoneal signs. Absent: distended, tenderness - Extremities Exam Extremities exam: Present: warm, radial pulses palpable and symmetrical. Absent : calf tenderness, cyanotic, pedal edema - Neurological Exam Neurological exam: Present: CN II-XII intact, oriented X3, no focal deficits. Absent: pronater drift, facial droop, speech deficit - Skin Skin exam: Present: dry, intact Internal Medicine: Result - Labs CBC & Chem 7: 11/25/17 17:57 11/26/17 04:26 Labs: BMP 11/26/17 04:26 Sodium 128 L Potassium 3.1 L Chloride 79 L Carbon Dioxide 33 H BUN 16 Creatinine 0.89 Glucose 67 L Calcium 10.4 H Liver Function 11/26/17 Range/Units 04:26 Total Bilirubin 2.0 H (0.3-1.0) mg/dL AST 135 H (13-39) Units/L ALT 130 H (7-52) Units/L Alkaline Phosphatase 63 (34-104) Units/L Albumin 4.7 (3.5-5.7) g/dL Consult Discharge Plan - Plan Referrals: Iris Ambrose MD [Primary Care Provider] -
[2017-11-26] MEDS: Nicotine 21 MG PATCH.TD24 TD SCH (15:47)
[2017-11-26] MEDS ORDERED: traMADol 50 MG TABLET PO PRN (16:26)
[2017-11-26] MEDS ORDERED: *HR* Promethazine 25 MG/ML VIAL IVP STA (18:05)
[2017-11-27] MEDS: Ondansetron ODT 4 MG TAB.RAPDIS SL PRN ×3 (00:14→16:19)
[2017-11-27 06:31] LABS: Basophils % 0.5 %; Hematocrit 39.5 % (37.5-50.1); Immature Granulocytes % 0.3 % (0-4)
[2017-11-27 06:33] LABS: Eosinophils % 0.8 %; Hemoglobin 13.9 g/dL (12.9-16.9); Immature Platelets 10.8 % (1.1-6.1); Lymphocytes % 25.9 %; Mean Corpuscular HGB Conc 35.2 g/dL (31.6-35.5); Mean Corpuscular Hemoglobin 31.7 pg (28.0-33.3); Mean Platelet Volume 10.8 fL (9.4-12.4); Monocytes # 0.3 K/mcL (0.0-1.3); Monocytes % 6.3 %; Neutrophils # 2.6 K/mcL (1.6-8.9); Red Blood Count 4.39 M/mcL (4.19-5.50); Red Cell Distribution Width 12.3 % (11.5-14.5); Segmented Neutrophils % 66.2 %
[2017-11-27 06:38] LABS: Platelet Count 93 K/mcL (140-400)
[2017-11-27 06:54] LABS: Alanine Aminotransferase 220 Units/L (7-52); Albumin 4.4 g/dL (3.5-5.7); Albumin/Globulin Ratio 1.5 (1.1-2.2); Alkaline Phosphatase 91 Units/L (34-104); Aspartate Amino Transferase 247 Units/L (13-39); BUN/Creatinine Ratio 13 (6-26); Bilirubin,Total 1.3 mg/dL (0.3-1.0); Blood Urea Nitrogen 11 mg/dL (6-20); Calcium 9.5 mg/dL (8.6-10.3); Carbon Dioxide 31 mEq/L (23-29); Chloride 94 mEq/L (98-107); Globulin 2.9 g/dL (2.4-3.5); Glucose 76 mg/dL (70-105); Magnesium 1.6 mg/dL (1.6-2.6); Osmolality,Calculated 280 (280-300); Phosphorous 1.9 mg/dL (2.7-4.5); Potassium 2.6 mEq/L (3.5-5.1); Sodium 136 mEq/L (136-145); Total Protein 7.3 g/dL (6.4-8.9); eGFR For African Americans > 60 (> 60); eGFR For Non-African Americans > 60 (> 60)
[2017-11-27] MEDS: Vitamin B Complex/Vit C/Vit E 1 EACH TABLET PO SCH (08:19)
[2017-11-27] MEDS: Folic Acid 1 MG TABLET PO SCH (08:19)
[2017-11-27] MEDS: Sucralfate 1 GM TABLET PO SCH ×5 (08:19→22:33)
[2017-11-27] MEDS: *HR* LORazepam 1 MG TABLET PO PRN ×3 (08:20→22:33)
[2017-11-27] MEDS: Thiamine (B-1) 100 MG TABLET PO SCH (08:20)
[2017-11-27] MEDS: Nicotine 21 MG PATCH.TD24 TD SCH (08:20)
[2017-11-27] MEDS ORDERED: *HR* Labetalol 20 MG/4 ML SYRINGE IVP PRN (08:30)
[2017-11-27] MEDS: 0.9 % Sodium Chloride 1,000 ML IVC SCH ×2 (10:57→16:17)
[2017-11-27] MEDS: *HR* OxyCODONE Immed Rel 5 MG TABLET PO PRN ×2 (12:45→22:33)
--- NOTE | 2017-11-27 13:25 | Gastroenterology Consult Note ---
<Isabella Matthews - Last Filed: 11/27/17 13:22> Date of Encounter: 11/27/17 Time of Encounter: 10:05 - Assessment and plan (1) Intractable nausea and vomiting Current Visit: Yes Status: Acute Assessment and plan: Pt has history of esophageal ulcers and has been on nexium and carafate at home. He has a history of alcoholic gastritis but denies any ETOH since 09/29. Continue PPI BID, antiemetics prn. May need repeat EGD. Qualifiers: Vomiting type: unspecified Qualified Code(s): R11.2 - Nausea with vomiting , unspecified (2) Fatty liver Current Visit: No Status: Acute Assessment and plan: History of ETOH abuse. Hepatitis panel negative. T bili is elevated but improved from last admission, AST and ALT are increased. US shows fatty liver. (3) Abdominal pain Current Visit: No Status: Acute Assessment and plan: US gallbladder shows sludge, MRI shows no CBD stone. May need repeat EGD vs surgery consult, will discuss with Dr Garcia. Qualifiers: Abdominal location: right upper quadrant Qualified Code(s): R10.11 - Right upper quadrant pain (4) Alcoholic hepatitis Current Visit: No Status: Acute Qualifiers: Ascites presence: without ascites Qualified Code(s): K70.10 - Alcoholic hepatitis without ascites - Time Spent With Patient Total time spent is greater than 50% in coordination of care (as documented) at patient's floor/unit and/or counseling patient: GI History of Present Illness - Data of Consult Patient: known to practice within the last 3 years Consult date: 11/27/17 Requesting Physician: Rolly Ndiaye MD - Consult Narrative Reason for consult: nausea/vomiting History of present illness: Mr. Catalan is a 37 year old male with a pmhx of opiate abuse, IV drug abuse, alcohol abuse, and fatty liver disease. He presented for intractable nausea, vomiting and RUQ pain. He was hospitalized for similar symptoms 09/29 and had an EGD which showed gastritis and esophageal ulcers. He states he had been taking nexium and carafate at home and had been doing well up until 4 days ago. He reports constant RUQ pain, nausea and vomiting unable to hold anything down including water. He denies any BM for the past week. He denies any hematemesis or bloody/black or tarry stools. He denies fever, chills or sick contacts. He reports he has not drank any ETOH since his last admission. He does have a history of IV drug use and opiate abuse but denies any recent drug abuse. Hepatitis profile was negative last admission. Labs show a WBC 3.9, Hgb 13.9, platelet count 93, t bili 1.3, AST 247, ALT 220, alk phos 91. Gallbladder ultrasound showed gallbladder sludge, mildly dilated CBD 0.7 cm. DF: -1.5 NSAIDS: denies Anticoagulants: none EGD: 09/29 esophageal ulcers and gastritis COLON: denies Past Med Surg Social Fam HX - Past Medical History Medical history: asthma, liver disease, renal disease Psychiatric history: anxiety - Past Surgical History Surgical History: no surgical history - Social History Smoking Status: Former smoker Smokeless Tobacco Status: Yes Alcohol use: none, occasionally Drug use: none - Family History Grandfather Name: Stefano Catalan Age: 85 Family Member Ethnicity: Non- Living Status: Still Living Hx Family Cardiac Disorders: Yes ([place], HTN) Hx Family Respiratory Disorders: No Hx Family Cancer: No Hx Family GI Disorders: No Hx Family Genitourinary Disorders: No Hx Family Endocrine Disorder: No Hx Family Musculoskeletal Disorders: No Hx Family Neuromuscular Disorders: No Hx Family Neurologic Disorders: No Hx Family HEENT Disorders: No Hx Family Autoimmune Disorders: No Hx Family Reproductive Disorders: No Hx Family Psychosocial Disorders: No Hx Family Medical Disorders: No Review of Systems: GI: as per [place] GENERAL: denies fever or chills EYES: denies yellow discoloration ENT: denies pain with swallowing or difficulty swallowing CARDIO: denies chest pain, palpitations RESP: No Shortness of breath with exertion : dark urine NEURO: weakness HEME: Denies any bruising MS: denies joint pain, joint swelling or back pain. DERM: denies rash or itching PSYCH: history of anxiety, depression, ETOH and drug abuse - Constitutional Vitals: Temp Pulse Resp BP Pulse Ox 99.5 F 81 20 126/61 97 11/27/17 10:53 11/27/17 10:53 11/27/17 10:53 11/27/17 10:53 11/27/17 10:53 Exam: CONSTITUTIONAL:~alert, no acute distress.~HEAD:~normocephalic.~EYES:~no jaundice.~NECK:~no obvious swelling.~HEART:~regular rate and rhythm, no murmurs. ~LUNGS:~bilateral good air entry.~ABDOMEN:~non distended, soft, diffusely tender worse to RUQ, no masses pulpable, no organomegaly.~RECTAL EXAM:~Deferred. ~EXTREMITIES:~no clubbing, cyanosis or edema.~SKIN:~no stigmata of chronic liver disease, scars noted to bilateral arms and hands no fresh puncture wounds. ~NEUROLOGIC:~no obvious focal defect.~~~~ Results - Labs CBC & Chem 7: 11/27/17 06:10 11/27/17 06:10 Labs: Last Result Calcium 9.5 mg/dL (8.6-10.3) 11/27/17 06:10 Entire Visit Hgb 13.9 g/dL (12.9-16.9) D 11/27/17 06:10 Hct 39.5 % (37.5-50.1) 11/27/17 06:10 Total Bilirubin 1.3 mg/dL (0.3-1.0) H 11/27/17 06:10 AST 247 Units/L (13-39) H 11/27/17 06:10 ALT 220 Units/L (7-52) H 11/27/17 06:10 Amylase 60 Units/L (29-103) 11/25/17 17:57 Lipase 64 Units/L (11-82) 11/25/17 17:57 - Impressions Impressions Abdomen MRI 11/27/17 09:38 IMPRESSION: 1. Gallbladder sludge. No MR findings of acute cholecystitis. 2. No biliary duct dilation or choledocholithiasis. 3. Hepatic steatosis. D/ / 11/27/2017 11:12:50 Tahmina Zelaya MD / krystina Interpreting Provider: Tahmina Zelaya MD Consult Discharge Plan - Plan Referrals: Iris Ambrose MD [Primary Care Provider] - <JoseRussellRyan - Last Filed: 11/27/17 21:14> Date of Encounter: 11/27/17 Time of Encounter: 15:00 - Time Spent With Patient Total time spent is greater than 50% in coordination of care (as documented) at patient's floor/unit and/or counseling patient: GI History of Present Illness - Data of Consult Requesting Physician: Rolly Ndiaye MD - Consult Narrative History of present illness: Mr. Catalan is a 37 year old male - Constitutional Vitals: Temp Pulse Resp BP Pulse Ox 98.7 F 106 17 132/92 99 11/27/17 18:59 11/27/17 18:59 11/27/17 18:59 11/27/17 18:59 11/27/17 18:59 Results - Labs CBC & Chem 7: 11/27/17 06:10 11/27/17 06:10 Labs: Last Result Calcium 9.5 mg/dL (8.6-10.3) 11/27/17 06:10 Entire Visit Hgb 13.9 g/dL (12.9-16.9) D 11/27/17 06:10 Hct 39.5 % (37.5-50.1) 11/27/17 06:10 PT 10.6 Seconds (9.4-12.1) 11/27/17 14:52 Total Bilirubin 1.3 mg/dL (0.3-1.0) H 11/27/17 06:10 AST 247 Units/L (13-39) H 11/27/17 06:10 ALT 220 Units/L (7-52) H 11/27/17 06:10 Amylase 60 Units/L (29-103) 11/25/17 17:57 Lipase 64 Units/L (11-82) 11/25/17 17:57 - ABG ABG results: PT/INR, D-dimer PT 10.6 Seconds (9.4-12.1) 11/27/17 14:52 - Impressions Impressions Abdomen MRI 11/27/17 09:38 IMPRESSION: 1. Gallbladder sludge. No MR findings of acute cholecystitis. 2. No biliary duct dilation or choledocholithiasis. 3. Hepatic steatosis. D/ / 11/27/2017 11:12:50 Tahmina Zelaya MD / krystina Interpreting Provider: Tahmina Zelaya MD - Attending Attestation I examined this patient and my medical decision-making was reviewed with the ENDOCRINOLOGY TEACHER. I agree with the documented findings, disposition and treatment plan as described except to the extent set forth below. Pt with abd pain with mildly abn LFTS . Per pt sober for > 2 months. Symptoms are concering for biliary dyskinesia. Rec; Surgical input for poss GB surgery
[2017-11-27 15:09] LABS: Prothrombin Time 10.6 Seconds (9.4-12.1)
--- NOTE | 2017-11-27 17:47 | General Surgery Consult Note ---
Date of Encounter: 11/27/17 Time of Encounter: 17:45 Assessment and Plan (1) Biliary dyskinesia Current Visit: Yes Status: Acute We will plan for a laparoscopic cholecystectomy and cholangiogram. Risks, benefits, expected outcomes are explained to patient and he agrees to proceed. History of Present Illness Consult date: 11/27/17 Reason for consult: abdominal pain History of present illness: This is a 37-year-old male presents to the hospital for abdominal pain. He was admitted through the emergency department. He has been evaluated by the hospitalist group as well as by gastroenterology. Patient states that he has had the same abdominal pain for over a year. Recently he was having difficulty eating both solids and liquids. States the pain is in the right upper quadrant. It does not radiate anywhere however he rates it as a 10 out of 10 limits at its worst. It does cause nausea and vomiting from time to time. Past Med Surg Social Fam HX - Past Medical History Medical history: asthma, liver disease, renal disease, other (Alcoholism) Psychiatric history: anxiety - Past Surgical History Surgical History: no surgical history - Social History Smoking Status: Former smoker Smokeless Tobacco Status: Yes Alcohol use: occasionally Drug use: none - Family History Grandfather Name: Stefano Catalan Age: 85 Family Member Ethnicity: Non- Living Status: Still Living Hx Family Cardiac Disorders: Yes ([place], HTN) Hx Family Respiratory Disorders: No Hx Family Cancer: No Hx Family GI Disorders: No Hx Family Genitourinary Disorders: No Hx Family Endocrine Disorder: No Hx Family Musculoskeletal Disorders: No Hx Family Neuromuscular Disorders: No Hx Family Neurologic Disorders: No Hx Family HEENT Disorders: No Hx Family Autoimmune Disorders: No Hx Family Reproductive Disorders: No Hx Family Psychosocial Disorders: No Hx Family Medical Disorders: No Medications and Allergies Mv-Mn/FA/Vit K/Lycop/Lut/Coq10 [Daily Multivitamin Capsule] 1 tab PO DAILY 09/29 [History] Naproxen Sodium [Aleve] 220 mg PO BID PRN 09/29/17 [History] Omeprazole [PriLOSEC] 40 mg PO BIDAC #60 capsule. 10/02/17 [Rx] Sucralfate [Carafate] 1 gm PO QIDAC #120 tablet 10/02/17 [Rx] Buprenorphine HCl/Naloxone HCl [Buprenorphin-Naloxon 8-2 mg Sl] 1 tab SL BID [History] 3 Allergy/AdvReac Type Severity Reaction Status Date / Time No Known Allergies Allergy Verified 11/25/17 17:40 Review of Systems All systems PM: reviewed and no additional remarkable complaints except as stated All systems PM: A 10-system review of systems was performed and is negative for pertinent findings except as documented above in the HPI. General Surgery Exam Initial Vital Signs Temp Pulse Resp BP Pulse Ox 98.5 F 132 20 145/106 95 11/25/17 17:41 11/25/17 17:41 11/25/17 17:41 11/25/17 17:41 11/25/17 17:41 - General physical appearance well developed, no distress - Eyes PERRL, normal ocular movement - ENT normal nares, normal mucosa - Neck trachea midline, no lymphadectomy - Respiratory normal expansion, normal respiratory effort - Cardiovascular Cardiovascular exam: Present: RRR - Abdomen Abdomen general surgery: Present: bowel sounds present, soft - Integumentary Integumentary general surgery: Present: warm and dry, no abnormal pigmentation - Neurologic Present: CN 2-12 grossly intact, normal sensation - Musculoskeletal Present: normal gait, normal posture - Psychiatric Psychiatric general surgery: Present: A&Ox3, appropriate Exam Initial Vital Signs Temp Pulse Resp BP Pulse Ox 98.5 F 132 20 145/106 95 11/25/17 17:41 11/25/17 17:41 11/25/17 17:41 11/25/17 17:41 11/25/17 17:41 Results - Labs 11/27/17 06:10 11/27/17 06:10 Abnormal lab results WBC 3.9 K/mcL (4.3-11.1) L 11/27/17 06:10 Plt Count 93 K/mcL (140-400) L 11/27/17 06:10 Immature Plt Fraction 10.8 % (1.1-6.1) H 11/27/17 06:10 Potassium 2.6 mEq/L (3.5-5.1) L 11/27/17 06:10 Chloride 94 mEq/L (98-107) L 11/27/17 06:10 Carbon Dioxide 31 mEq/L (23-29) H 11/27/17 06:10 POC Glucose 98 (58-89) H 11/27/17 00:09 Phosphorus 1.9 mg/dL (2.7-4.5) L 11/27/17 06:10 Total Bilirubin 1.3 mg/dL (0.3-1.0) H 11/27/17 06:10 AST 247 Units/L (13-39) H 11/27/17 06:10 ALT 220 Units/L (7-52) H 11/27/17 06:10 Urine Color [place] (Yellow) A 11/25/17 19:40 Urine Clarity Turbid (Clear) A 11/25/17 19:40 Ur Specific [place] 1.030 (1.010-1.025) H 11/25/17 19:40 Urine Protein >=300 mg/dL (Neg-Trace) H 11/25/17 19:40 Urine Ketones 80 mg/dL (Negative) H 11/25/17 19:40 Urine Blood Small (Negative) H 11/25/17 19:40 Urine Nitrite Positive (Negative) A 11/25/17 19:40 Urine Bilirubin Large (Negative) H 11/25/17 19:40 Ur Leukocyte Esterase Small (Negative) H 11/25/17 19:40 Urine Microscopic RBC 5-15 per hpf (0-3) H 11/25/17 19:40 Urine Microscopic WBC 5-15 per hpf (0-3) H 11/25/17 19:40 Ur Squamous Epith Cells Many per lpf (None-Few) H 11/25/17 19:40 Hyaline Casts Many per lpf (None-Few) H 11/25/17 19:40 Diabetes panel 11/27/17 Range/Units 06:10 Sodium 136 (136-145) mEq/L Potassium 2.6 L (3.5-5.1) mEq/L Chloride 94 L (98-107) mEq/L Carbon Dioxide 31 H (23-29) mEq/L BUN 11 (6-20) mg/dL Creatinine 0.87 (0.70-1.30) mg/dL Glucose 76 (70-105) mg/dL Calcium 9.5 (8.6-10.3) mg/dL AST 247 H (13-39) Units/L ALT 220 H (7-52) Units/L Alkaline Phosphatase 91 (34-104) Units/L Albumin 4.4 (3.5-5.7) g/dL Calcium panel 11/27/17 Range/Units 06:10 Calcium 9.5 (8.6-10.3) mg/dL Phosphorus 1.9 L (2.7-4.5) mg/dL Albumin 4.4 (3.5-5.7) g/dL Pituitary panel 11/27/17 Range/Units 06:10 Sodium 136 (136-145) mEq/L Potassium 2.6 L (3.5-5.1) mEq/L Chloride 94 L (98-107) mEq/L Carbon Dioxide 31 H (23-29) mEq/L BUN 11 (6-20) mg/dL Creatinine 0.87 (0.70-1.30) mg/dL Glucose 76 (70-105) mg/dL Calcium 9.5 (8.6-10.3) mg/dL Adrenal panel 11/27/17 Range/Units 06:10 Sodium 136 (136-145) mEq/L Potassium 2.6 L (3.5-5.1) mEq/L Chloride 94 L (98-107) mEq/L Carbon Dioxide 31 H (23-29) mEq/L BUN 11 (6-20) mg/dL Creatinine 0.87 (0.70-1.30) mg/dL Glucose 76 (70-105) mg/dL Calcium 9.5 (8.6-10.3) mg/dL Total Bilirubin 1.3 H (0.3-1.0) mg/dL AST 247 H (13-39) Units/L ALT 220 H (7-52) Units/L Alkaline Phosphatase 91 (34-104) Units/L Albumin 4.4 (3.5-5.7) g/dL All other labs normal. Consult Discharge Plan - Plan Referrals: Iris Ambrose MD [Primary Care Provider] -
[2017-11-27] MEDS ORDERED: Thiamine (B-1) 100 MG, Folic Acid 1 MG, MVI, adult with vitamin K 10 ML in 0.9 % Sodi... IVPB SCH (18:00)
--- NOTE | 2017-11-27 22:13 | Internal Med Progress Note ---
Date of Encounter: 11/27/17 Time of Encounter: 15:13 - Assessment and plan (1) Intractable nausea and vomiting Current Visit: Yes Status: Acute Qualifiers: Vomiting type: unspecified Qualified Code(s): R11.2 - Nausea with vomiting , unspecified - Subjective Interval history: 37 year old male presented for intractable nausea and vomiting. Has a known history of gastritis, alcohol abuse, and IV drug abuse. He had a recent admission with an EGD showing gastritis. Patient had hyponatremia and hypokalemia secondary likely from poor PO and N/V. He was been treated with IV fluids and Protonix. A gallbladder ultrasound showed negative for cholecystitis , did show gallbladder sludge, and muldly dilated common bile duct. Bilirubin is elevated on admission at 2.9 and now is 2.0. Assessment: - Intractable N/V - Hypokalemia - Hyponatremia - Alcoholic hepatitis - Elevated blood pressure Plan: - Continue IV hydration - IV protonix BID, Carafate, Zofran prn - Replace electrolytes as needed - Consider GI or Surgery consult based on patient response to treatment. - IV labetolol prn hypertension, avoid hydralazine as patient is tachycardic - Constitutional Vitals: Temp Pulse Resp BP Pulse Ox 98.7 F 106 17 132/92 99 11/27/17 18:59 11/27/17 18:59 11/27/17 18:59 11/27/17 18:59 11/27/17 18:59 Internal Medicine: Result - Labs CBC & Chem 7: 11/27/17 06:10 11/27/17 06:10 Labs: Short CBC 11/27/17 Range/Units 06:10 WBC 3.9 L (4.3-11.1) K/mcL Hgb 13.9 D (12.9-16.9) g/dL Hct 39.5 (37.5-50.1) % Plt Count 93 L (140-400) K/mcL Neutrophils # 2.6 (1.6-8.9) K/mcL BMP 11/27/17 06:10 Sodium 136 Potassium 2.6 L Chloride 94 L Carbon Dioxide 31 H BUN 11 Creatinine 0.87 Glucose 76 Calcium 9.5 Liver Function 11/27/17 Range/Units 06:10 Total Bilirubin 1.3 H (0.3-1.0) mg/dL AST 247 H (13-39) Units/L ALT 220 H (7-52) Units/L Alkaline Phosphatase 91 (34-104) Units/L Albumin 4.4 (3.5-5.7) g/dL - ABG Interpretation ABG results: PT/INR, D-dimer PT 10.6 Seconds (9.4-12.1) 11/27/17 14:52 - Impressions Impressions Abdomen MRI 11/27/17 09:38 IMPRESSION: 1. Gallbladder sludge. No MR findings of acute cholecystitis. 2. No biliary duct dilation or choledocholithiasis. 3. Hepatic steatosis. D/ / 11/27/2017 11:12:50 Tahmina Zelaya MD / [email or web address] Interpreting Provider: Tahmina Zelaya MD Consult Discharge Plan - Plan Referrals: Iris Ambrose MD [Primary Care Provider] -
[2017-11-28] MEDS: Ondansetron ODT 4 MG TAB.RAPDIS SL PRN ×2 (00:08→08:14)
[2017-11-28] MEDS: 0.9 % Sodium Chloride 1,000 ML IVC SCH (06:53)
[2017-11-28 07:07] LABS: Basophils % 0.7 %; Hematocrit 32.2 % (37.5-50.1)
[2017-11-28 07:09] LABS: Eosinophils # 0.1 K/mcL (0.0-0.6); Eosinophils % 2.2 %; Hemoglobin 11.1 g/dL (12.9-16.9); Immature Platelets 7.8 % (1.1-6.1); Lymphocytes # 1.1 K/mcL (0.6-4.6); Lymphocytes % 39.1 %; Mean Corpuscular HGB Conc 34.5 g/dL (31.6-35.5); Mean Corpuscular Hemoglobin 31.4 pg (28.0-33.3); Mean Corpuscular Volume 91.2 fL (83.0-100.0); Mean Platelet Volume 10.7 fL (9.4-12.4); Monocytes # 0.4 K/mcL (0.0-1.3); Monocytes % 12.7 %; Neutrophils # 1.3 K/mcL (1.6-8.9); Red Blood Count 3.53 M/mcL (4.19-5.50); Red Cell Distribution Width 12.8 % (11.5-14.5); Segmented Neutrophils % 45.3 %
[2017-11-28 07:29] LABS: Alanine Aminotransferase 198 Units/L (7-52); Albumin 3.6 g/dL (3.5-5.7); Albumin/Globulin Ratio 1.6 (1.1-2.2); Alkaline Phosphatase 51 Units/L (34-104); Aspartate Amino Transferase 167 Units/L (13-39); BUN/Creatinine Ratio 9 (6-26); Blood Urea Nitrogen 6 mg/dL (6-20); Calcium 8.7 mg/dL (8.6-10.3); Carbon Dioxide 32 mEq/L (23-29); Chloride 101 mEq/L (98-107); Globulin 2.2 g/dL (2.4-3.5); Glucose 94 mg/dL (70-105); Magnesium 1.2 mg/dL (1.6-2.6); Osmolality,Calculated 285 (280-300); Phosphorous 3.2 mg/dL (2.7-4.5); Potassium 3.2 mEq/L (3.5-5.1); Sodium 139 mEq/L (136-145); Total Protein 5.8 g/dL (6.4-8.9); eGFR For African Americans > 60 (> 60); eGFR For Non-African Americans > 60 (> 60)
[2017-11-28 08:08] LABS: Platelet Count 82 K/mcL (140-400)
[2017-11-28] MEDS: Nicotine 21 MG PATCH.TD24 TD SCH (08:12)
[2017-11-28] MEDS: Sucralfate 1 GM TABLET PO SCH ×4 (08:12→21:38)
[2017-11-28] MEDS: Vitamin B Complex/Vit C/Vit E 1 EACH TABLET PO SCH (08:13)
[2017-11-28] MEDS: *HR* OxyCODONE Immed Rel 5 MG TABLET PO PRN ×2 (08:14→14:47)
[2017-11-28] MEDS: *HR* LORazepam 1 MG TABLET PO PRN ×3 (08:15→23:44)
--- NOTE | 2017-11-28 15:40 | Anesthesia Evaluation PreOp ---
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 10/02/17 [Rx] Sucralfate [Carafate] 1 gm PO QIDAC #120 tablet 10/02/17 [Rx] Buprenorphine HCl/Naloxone HCl [Buprenorphin-Naloxon 8-2 mg Sl] 1 tab SL BID [History] 3 Allergy/AdvReac Type Severity Reaction Status Date / Time No Known Allergies Allergy Verified 11/25/17 17:40 - Meds/Allergy Pre-op Review Medications Reviewed: Yes Allergies Reviewed: Yes Beta Blockers on Current Med List: No Anesthesia Results - Labs 11/28/17 06:32 11/28/17 06:32 - Imaging EKG: report reviewed (sinus tachy) Anesthesia Exam Vital Signs/O2 Sat, Most Current Temp Pulse Resp BP Pulse Ox 98.3 F 88 20 129/84 96 11/28/17 12:06 11/28/17 12:06 11/28/17 12:06 11/28/17 12:06 11/28/17 12:06 Height: 1.83m Weight: 73kg NPO (# of Hours): >8 - HEENT Pupil (Motor): Pupils equal, EOMI Mallampati: II Oral Opening: Greater than 3 - GLASS PRODUCTION MACHINE OPERATOR LOC: Oriented GLASS PRODUCTION MACHINE OPERATOR Motor: Normal RUE, Normal LUE, Normal RLE, Normal LLE, Normal Face GLASS PRODUCTION MACHINE OPERATOR Sensory: Normal: RUE, LUE, RLE, LLE, Face - Cardiac Rhythm: Regular - Pulmonary Breath Sounds: bilateral Clear Respiratory Effort: Symmetrical Anesthesia Assess/Plan ASA Score: 2 Modified Zak Scale for Level of Consciousness: Cooperative, oriented, and tranquil Anesthetic Plan: General (r/b/a discussed, questions answered, consent obtained) Monitoring Plan: Standard Monitors Recovery Plan: PACU
[2017-11-28] MEDS ORDERED: *HR* Midazolam HCl 2 MG/2 ML VIAL ONE (15:49)
[2017-11-28] MEDS ORDERED: *HR* FentaNYL (PF) 100 MCG/2 ML VIAL ONE (15:49)
[2017-11-28] MEDS ORDERED: *HR* Propofol 200 MG/20 ML VIAL IVP ONE (15:49)
[2017-11-28] MEDS ORDERED: Lidocaine -MPF 2% 2 ML VIAL ONE (15:51)
[2017-11-28] MEDS ORDERED: *HR* Rocuronium Bromide 50 MG/5 ML VIAL ONE (15:51)
[2017-11-28] MEDS ORDERED: Lidocaine -MPF 4% 5 ML AMPUL ONE (15:53)
[2017-11-28] MEDS ORDERED: Isovue-300 50 ML VIAL IVP ONE (16:02)
[2017-11-28] MEDS: Albuterol 2.5 MG/3 ML NEBULIZER ONE ×2 (16:11→16:12)
[2017-11-28] MEDS ORDERED: Ketamine *HR* 500 MG/10 ML MDV ONE (16:17)
[2017-11-28] MEDS ORDERED: Esmolol 100 MG/10 ML VIAL IVP ONE (16:20)
[2017-11-28] MEDS ORDERED: Ketorolac 30 MG/ML VIAL ONE (16:26)
[2017-11-28] MEDS ORDERED: Ondansetron 4 MG/2 ML VIAL ONE (16:26)
[2017-11-28] MEDS ORDERED: Dexamethasone 4 MG/ML VIAL ONE (16:26)
[2017-11-28] MEDS ORDERED: MORPHINE SUL Oral CONC 10 MG/0.5 ML ORAL.SYG SL PRN (16:36)
[2017-11-28] MEDS ORDERED: *HR* OxyCODONE/APAP 5/325 TABLET PO PRN ×2 (16:36→18:12)
[2017-11-28] MEDS ORDERED: *HR* Promethazine 25 MG/ML VIAL IVP PRN ×2 (16:36→18:12)
[2017-11-28] MEDS ORDERED: Neostigmine Methylsulfate 3 MG/3 ML SYRINGE ONE (16:45)
--- NOTE | 2017-11-28 17:13 | Operative Note ---
Date of procedure: 11/28/17 Pre-op diagnosis: Cholecystitis Post-op diagnosis: same Procedure: Laparoscopic cholecystectomy with cholangiogram Anesthesia: RUDYA Surgeon: Chong Benson Was there an assistant professor of economics present: Yes Diesel Engine Mechanic Apprentice: Corrine Rosario Estimated blood loss (cc): 5 Specimen: GB Condition: stable Disposition: same day Procedure in Detail: After informed consent the patient was taken to the operating room. After adequate sedation anesthesia the abdomen was prepped and draped. A proper timeout was performed. Two towel clamps to place the umbilicus. A varies needle was placed at the umbilicus and a pneumo-peritoneum was created. A 5 mm incision was made at the umbilicus and a port was placed under direct visualization. An 12 mm incision was created in the left upper quadrant, followed by one in the right upper quadrant. There were 2 individual 5 mm cannulas then placed agrees incisions. An additional 5 mm cannula was created in the right lower quadrant. A alligator clamp was then placed on the gallbladder was retracted anteriorly and cephalad. . A grasper and hook were placed the patients abdomen. The infundibulum of the gallbladder was identified and the cystic duct was skeletonized. A cholangiogram was performed and revealed flow into the doudenum and common hepatic duct. Once the structures were identified the cystic duct was clipped twice proximally and once distally. Cystic duct was then transected. The gallbladder was then resected off the liver surface. Once the gallbladder was fully resected from the liver surface, the liver was gently irrigated and suctioned dry. We ensured hemostasis prior to removing the gallbladder through the subxiphoid port. Pneumoperitoneum was then evacuated. The 12 mm cannula site was closed with a 0-Vicryl suture in [id number] fashion. The port sites were injected with half percent Marcaine 30 mL. The skin was closed with 4-0 Vicryl suture and Dermabond. All instrument counts and needle counts were correct at the end of the case. The pt was taken to recovery in stable condition.
[2017-11-28] MEDS ORDERED: Acetaminophen IV 1,000 MG/100 ML INFUS..BTL IVPB ONE (17:24)
--- NOTE | 2017-11-28 17:52 | Anesthesia Evaluation Post Op ---
Date of Encounter: 11/28/17 Time of Encounter: 17:50 - Vital Signs Vital Signs: Vital Signs/O2 Sat, Most Current Temp Pulse Resp BP Pulse Ox 99.4 F 101 16 137/97 97 11/28/17 17:38 11/28/17 17:38 11/28/17 17:38 11/28/17 17:38 11/28/17 17:38 - Lungs Lungs: Clear Ascult./Percussion - Airway Airway: Non-obstructed - Cardiovascular Regular Rate - Mental Status Mental Status: Alert & Oriented, Answers Appropriately - Pain Pain Scale: 0 Pain Scale used: Numeric (1 - 10) - Nausea Vomiting Nausea Vomiting: Not Present - Hydration Hydration: Tolerates oral liquids - Discharge PostOp Status: Discharge Patient to home Attestation: I have assessed this patient and find they meet discharge criteria.
[2017-11-28] MEDS ORDERED: Naloxone 0.4 MG/ML INJ IVP PRN (18:12)
[2017-11-28] MEDS ORDERED: *HR* OxyCODONE Immed Rel 5 MG TABLET PO PRN (18:12)
[2017-11-28] MEDS ORDERED: *HR* Labetalol 20 MG/4 ML SYRINGE IVP PRN (18:12)
[2017-11-28] MEDS ORDERED: MOM Conc 10 ML UD.LIQ PO PRN (18:12)
[2017-11-28] MEDS: MORPHINE SUL Oral CONC 10 MG/0.5 ML ORAL.SYG SL PRN ×2 (20:23→21:39)
--- NOTE | 2017-11-28 23:03 | Internal Med Progress Note ---
Date of Encounter: 11/28/17 Time of Encounter: 13:01 - Assessment and plan (1) Intractable nausea and vomiting Current Visit: Yes Status: Acute Assessment and plan: 37 year old male presented for intractable nausea and vomiting. Has a known history of gastritis, alcohol abuse, and IV drug abuse. He had a recent admission with an EGD showing gastritis. Patient had hyponatremia and hypokalemia secondary likely from poor PO and N/V. He was been treated with IV fluids and Protonix. A gallbladder ultrasound showed negative for cholecystitis , did show gallbladder sludge, and muldly dilated common bile duct. Bilirubin is elevated on admission at 2.9 and now is 2.0. Assessment: - Intractable N/V - Hypokalemia - Hyponatremia - Alcoholic hepatitis - Elevated blood pressure Plan: - Continue IV hydration - IV protonix BID, Carafate, Zofran prn - Replace electrolytes as needed - Consider GI or Surgery consult based on patient response to treatment. - IV labetolol prn hypertension, avoid hydralazine as patient is tachycardic Qualifiers: Vomiting type: unspecified Qualified Code(s): R11.2 - Nausea with vomiting , unspecified - Subjective Interval history: 37 year old male presented for intractable nausea and vomiting. Has a known history of gastritis, alcohol abuse, and IV drug abuse. He had a recent admission with an EGD showing gastritis. Patient had hyponatremia and hypokalemia secondary likely from poor PO and N/V. - Constitutional Vitals: Temp Pulse Resp BP Pulse Ox 98.9 F 116 16 111/70 98 11/28/17 21:15 11/28/17 21:15 11/28/17 21:15 11/28/17 21:15 11/28/17 21:15 - Head Head exam: Present: atraumatic, normocephalic - Eye Eye exam: Present: PERRL, conjuntiva pink, sclera anicteric Pupils: Present: PERRL - Neck Neck exam general surgery: Present: supple, trachea midline. Absent: lymphadenopathy - Respiratory Respiratory exam: Present: CTAB. Absent: accessory muscle use, rales, rhonchi, wheezes - Cardiovascular Cardiovascular exam: Present: RRR, +S1, +S2. Absent: diastolic murmur, gallop, rubs, systolic murmur - GI/Abdominal GI/Abdominal exam: Present: normal bowel sounds, soft, tenderness, no peritoneal signs. Absent: distended - Extremities Exam Extremities exam: Present: warm, radial pulses palpable and symmetrical. Absent : calf tenderness, cyanotic, pedal edema - Neurological Exam Neurological exam: Present: CN II-XII intact, oriented X3, no focal deficits. Absent: pronater drift, facial droop, speech deficit - Skin Skin exam: Present: dry, intact Internal Medicine: Result - Labs CBC & Chem 7: 11/28/17 06:32 11/28/17 06:32 Labs: Short CBC 11/28/17 Range/Units 06:32 WBC 2.8 L (4.3-11.1) K/mcL Hgb 11.1 L D (12.9-16.9) g/dL Hct 32.2 L (37.5-50.1) % Plt Count 82 L (140-400) K/mcL Neutrophils # 1.3 L (1.6-8.9) K/mcL BMP 11/28/17 06:32 Sodium 139 Potassium 3.2 L Chloride 101 Carbon Dioxide 32 H BUN 6 Creatinine 0.65 L Glucose 94 Calcium 8.7 Liver Function 11/28/17 Range/Units 06:32 Total Bilirubin 1.0 (0.3-1.0) mg/dL AST 167 H (13-39) Units/L ALT 198 H (7-52) Units/L Alkaline Phosphatase 51 (34-104) Units/L Albumin 3.6 (3.5-5.7) g/dL - ABG Interpretation ABG results: PT/INR, D-dimer PT 10.6 Seconds (9.4-12.1) 11/27/17 14:52 - Impressions Impressions Cholangiogram,Operative 11/28/17 16:38 IMPRESSION: Unremarkable intraoperative cholangiogram status post cholecystectomy D/ / 11/28/2017 17:00:15 Gregory Nichols MD / [facility] Interpreting Provider: Gregory Nichols MD - VTE Documentation of Mechanical Device: Intermittent pneumatic compression device Consult Discharge Plan - Plan Referrals: Iris Ambrose MD [Primary Care Provider] - 12/06/17 1:00 pm
[2017-11-29] MEDS: Sucralfate 1 GM TABLET PO SCH ×4 (06:36→21:25)
[2017-11-29] MEDS: *HR* LORazepam 1 MG TABLET PO PRN ×3 (06:41→21:32)
[2017-11-29] MEDS: Ondansetron ODT 4 MG TAB.RAPDIS SL PRN ×2 (06:41→12:56)
[2017-11-29 07:31] LABS: Basophils % 0.1 %; Eosinophils % 0.1 %; Hematocrit 26.3 % (37.5-50.1); Immature Granulocytes % 0.5 % (0-4); Lymphocytes # 1.2 K/mcL (0.6-4.6); Lymphocytes % 15.1 %; Mean Corpuscular Hemoglobin 31.4 pg (28.0-33.3); Mean Corpuscular Volume 89.8 fL (83.0-100.0); Mean Platelet Volume 11.5 fL (9.4-12.4); Monocytes # 0.7 K/mcL (0.0-1.3); Monocytes % 9.2 %; Platelet Count 162 K/mcL (140-400); Red Blood Count 2.93 M/mcL (4.19-5.50); Red Cell Distribution Width 12.3 % (11.5-14.5)
[2017-11-29 07:32] LABS: Hemoglobin 9.2 g/dL (12.9-16.9); Neutrophils # 5.9 K/mcL (1.6-8.9)
[2017-11-29 08:11] LABS: Alanine Aminotransferase 212 Units/L (7-52); Albumin 3.5 g/dL (3.5-5.7); Albumin/Globulin Ratio 1.7 (1.1-2.2); Alkaline Phosphatase 44 Units/L (34-104); Aspartate Amino Transferase 135 Units/L (13-39); BUN/Creatinine Ratio 13 (6-26); Bilirubin,Total 0.8 mg/dL (0.3-1.0); Blood Urea Nitrogen 8 mg/dL (6-20); Carbon Dioxide 27 mEq/L (23-29); Chloride 98 mEq/L (98-107); Globulin 2.1 g/dL (2.4-3.5); Glucose 162 mg/dL (70-105); Osmolality,Calculated 282 (280-300); Potassium 3.8 mEq/L (3.5-5.1); Sodium 135 mEq/L (136-145); Total Protein 5.6 g/dL (6.4-8.9); eGFR For African Americans > 60 (> 60); eGFR For Non-African Americans > 60 (> 60)
[2017-11-29] MEDS: Vitamin B Complex/Vit C/Vit E 1 EACH TABLET PO SCH (09:00)
[2017-11-29] MEDS ORDERED: Nicotine 21 MG PATCH.TD24 TD SCH (09:00)
[2017-11-29] MEDS: Nicotine 14 MG PATCH.TD24 TD SCH (09:00)
--- NOTE | 2017-11-29 09:28 | Internal Med Progress Note ---
Date of Encounter: 11/29/17 Time of Encounter: 09:22 - Assessment and plan (1) Intractable nausea and vomiting Current Visit: Yes Status: Acute Assessment and plan: 37 year old male presented for intractable nausea and vomiting. Has a known history of gastritis, alcohol abuse, and IV drug abuse. He had a recent admission with an EGD showing gastritis. Patient had hyponatremia and hypokalemia secondary likely from poor PO and N/V. He was been treated with IV fluids and Protonix. A gallbladder ultrasound showed negative for cholecystitis , did show gallbladder sludge, and muldly dilated common bile duct. Bilirubin is elevated on admission at 2.9 and now is 2.0. - history of esophageal ulcers and egoh gastritis. Also biliary dyskenesia - Status post lap cholecystectomy 11/28, doing well.. Continue pain management. Avoiding APAP because of patient LFT. Qualifiers: Vomiting type: unspecified Qualified Code(s): R11.2 - Nausea with vomiting , unspecified (2) Sinus tachycardia Current Visit: Yes Status: Acute Assessment and plan: Suspect this is related to pain. Not likely sepsis Patient states he has no known history of tachycardia Currently on telemetry monitoring Obtain ECG, echocardiogram today Continue pain control may need increase. Has history of opiate drug use , this will need to be done cautiously Avoid Toradol, Has history severe esophagitis and ulcers Decrease nicotine patch to 14 mg daily If no improvement then start metoprolol (3) Alcoholic hepatitis Current Visit: No Status: Acute Qualifiers: Ascites presence: without ascites Qualified Code(s): K70.10 - Alcoholic hepatitis without ascites (4) Hypokalemia Current Visit: Yes Status: Acute Assessment and plan: Resolved, replace as needed until diet advanced. (5) Hyponatremia Current Visit: Yes Status: Acute (6) Alcohol abuse, in remission Current Visit: Yes Status: Acute - Subjective Interval history: 37 year old male presented for intractable nausea and vomiting. Has a known history of gastritis, alcohol abuse, and IV drug abuse. He had a recent admission with an EGD showing gastritis. Patient had hyponatremia and hypokalemia secondary likely from poor PO and N/V. - Constitutional Vitals: Temp Pulse Resp BP Pulse Ox 98.7 F 117 17 105/72 97 11/29/17 07:38 11/29/17 07:38 11/29/17 07:38 11/29/17 07:38 11/29/17 07:38 Internal Medicine: Result - Labs CBC & Chem 7: 11/29/17 06:11 11/29/17 06:11 Labs: Short CBC 11/29/17 Range/Units 06:11 WBC 7.8 D (4.3-11.1) K/mcL Hgb 9.2 L D (12.9-16.9) g/dL Hct 26.3 L (37.5-50.1) % Plt Count 162 D (140-400) K/mcL Neutrophils # 5.9 (1.6-8.9) K/mcL BMP 11/29/17 06:11 Sodium 135 L Potassium 3.8 Chloride 98 Carbon Dioxide 27 BUN 8 Creatinine 0.63 L Glucose 162 H Calcium 9.0 Liver Function 11/29/17 Range/Units 06:11 Total Bilirubin 0.8 (0.3-1.0) mg/dL AST 135 H (13-39) Units/L ALT 212 H (7-52) Units/L Alkaline Phosphatase 44 (34-104) Units/L Albumin 3.5 (3.5-5.7) g/dL - ABG Interpretation ABG results: PT/INR, D-dimer PT 10.6 Seconds (9.4-12.1) 11/27/17 14:52 - Impressions Impressions Cholangiogram,Operative 11/28/17 16:38 IMPRESSION: Unremarkable intraoperative cholangiogram status post cholecystectomy D/ 11/28/2017 17:00:15 Gregory Nichols MD / [facility] Interpreting Provider: Gregory Nichols MD - VTE Documentation of Mechanical Device: Intermittent pneumatic compression device Consult Discharge Plan - Plan Referrals: Iris Ambrose MD [Primary Care Provider] - 12/06/17 1:00 pm
--- NOTE | 2017-11-29 11:12 | General Surgery Progress Note ---
Date of Encounter: 11/29/17 Time of Encounter: 11:10 - Assessment and Plan (1) Biliary dyskinesia Current Visit: Yes Status: Acute POD #1 Laparoscopic cholecystectomy with cholangiogram with Dr. Benson XR/XR cholangiogram operative IMPRESSION: Unremarkable intraoperative cholangiogram status post cholecystectomy Advance diet as tolerated to regular Supportive care and pain control Ambulate hallways TID with assistance IS every 1 hour while awake GI/DVT prophylaxis May discharge from a surgical standpoint when medically appropriate Subjective Patient reports: no new complaints, feels better, still having pain (post- operative pain; pre-operative pain resolved), tolerating a regular diet (soft diet), voiding w/o difficulty, flatus, nausea (occasional but much better than pre-operative), afebrile, other (Incisional pain and right shoulder pain) Objective Vital Signs - Last 8 Hours Temp Pulse Resp BP Pulse Ox 11/29/17 11:03 117 18 106/66 97 11/29/17 07:38 98.7 F 117 17 105/72 97 11/29/17 03:57 98.6 F 103 16 101/70 99 Intake and Output 11/28/17 11/29/17 11/29/17 23:59 07:59 15:59 Intake Total 1280 / 1280 480 / 480 Output Total 1805 / 1805 Balance -525 / -525 480 / 480 Intake: IV Fluids 800 / 800 0.9 % Sodium Chloride 1,000 ML 800 / 800 @ 125 mls/hr IVC .Q8H WILLIAM Rx#: [id number] Oral 480 / 480 480 / 480 Output: Urine 1800 / 1800 Estimated Blood Loss 5 / 5 Other: Weight 74.4 kg Patient Weight 11/29/17 23:59 Weight 74.4 kg - General physical appearance well developed, well nourished, no distress - Eyes normal ocular movement - ENT normal mucosa, atraumatic, normocephalic - Neck Neck exam: trachea midline - Respiratory normal respiratory effort, clear to auscultation - Cardiovascular Cardiovascular exam: Present: tachycardia - Abdomen Abdomen: Present: bowel sounds present, soft, tender (Expected postoperative tenderness) - Incision Incision: Present: clean and dry, intact - Integumentary no rash, no growths, no abnormal pigmentation - Neurologic CN 2-12 grossly intact - Psychiatric oriented to time, oriented to person, oriented to place, speech is normal, memory intact - Labs 11/29/17 06:11 11/29/17 06:11 Diabetes panel 11/29/17 Range/Units 06:11 Sodium 135 L (136-145) mEq/L Potassium 3.8 (3.5-5.1) mEq/L Chloride 98 (98-107) mEq/L Carbon Dioxide 27 (23-29) mEq/L BUN 8 (6-20) mg/dL Creatinine 0.63 L (0.70-1.30) mg/dL Glucose 162 H (70-105) mg/dL Calcium 9.0 (8.6-10.3) mg/dL AST 135 H (13-39) Units/L ALT 212 H (7-52) Units/L Alkaline Phosphatase 44 (34-104) Units/L Albumin 3.5 (3.5-5.7) g/dL Calcium panel 11/29/17 Range/Units 06:11 Calcium 9.0 (8.6-10.3) mg/dL Albumin 3.5 (3.5-5.7) g/dL Pituitary panel 11/29/17 Range/Units 06:11 Sodium 135 L (136-145) mEq/L Potassium 3.8 (3.5-5.1) mEq/L Chloride 98 (98-107) mEq/L Carbon Dioxide 27 (23-29) mEq/L BUN 8 (6-20) mg/dL Creatinine 0.63 L (0.70-1.30) mg/dL Glucose 162 H (70-105) mg/dL Calcium 9.0 (8.6-10.3) mg/dL Adrenal panel 11/29/17 Range/Units 06:11 Sodium 135 L (136-145) mEq/L Potassium 3.8 (3.5-5.1) mEq/L Chloride 98 (98-107) mEq/L Carbon Dioxide 27 (23-29) mEq/L BUN 8 (6-20) mg/dL Creatinine 0.63 L (0.70-1.30) mg/dL Glucose 162 H (70-105) mg/dL Calcium 9.0 (8.6-10.3) mg/dL Total Bilirubin 0.8 (0.3-1.0) mg/dL AST 135 H (13-39) Units/L ALT 212 H (7-52) Units/L Alkaline Phosphatase 44 (34-104) Units/L Albumin 3.5 (3.5-5.7) g/dL - VTE Documentation of Mechanical Device: Intermittent pneumatic compression device Consult Discharge Plan - Plan Additional Instructions: #1 may shower, no tub bath for 2 weeks #2 wash incisions with soap and water and pat dry daily #3 no lifting, pushing, pulling more than 15 pounds for the next 2 weeks #4 no driving until off narcotics for 24 hours and able to safely react in the car #5 may climb stairs Referrals: Iris Ambrose MD [Primary Care Provider] - 12/06/17 1:00 pm Janett Hoskins CNP [Advanced Practice Nurse] - 12/12/17 8:30 am (surgery follow-up) Prescriptions: Docusate [Colace] 100 mg PO BID #30 capsule OxyCODONE Immed Rel [Roxicodone 5 MG] 5 mg PO Q4H PRN 5 Days #30 tablet PRN Reason: Pain - Attending Attestation For this encounter, I have reviewed the RECEIVER STOCKER or PA documentation, treatment plan, and medical decision making; and I have had face to face time with this patient.
[2017-11-29] MEDS ORDERED: MORPHINE SUL Oral CONC 10 MG/0.5 ML ORAL.SYG SL PRN (11:14)
[2017-11-29] MEDS ORDERED: traMADol 50 MG TABLET PO PRN (11:16)
[2017-11-29] MEDS: Ketorolac 15 MG/ML VIAL IVP SCH ×2 (12:55→17:32)
[2017-11-29] MEDS: *HR* OxyCODONE Immed Rel 5 MG TABLET PO PRN ×3 (12:55→21:32)
[2017-11-29] MEDS: Thiamine (B-1) 100 MG, Folic Acid 1 MG, MVI, adult with vitamin K 10 ML in 0.9 % Sodi... IVPB SCH (18:25)
[2017-11-30] MEDS: Ketorolac 15 MG/ML VIAL IVP SCH ×4 (00:13→17:04)
[2017-11-30 02:36] LABS: Amphetamines NEGATIVE ng/mL (Cutoff 30); Barbiturates NEGATIVE ng/mL (Cutoff 75); Benzodiazepines NEGATIVE ng/mL (Cutoff 75); Cocaine NEGATIVE ng/mL (Cutoff 30); Methadone NEGATIVE ng/mL (Cutoff 40); Methamphetamines NEGATIVE ng/mL (Cutoff 30); Opiates NEGATIVE ng/mL (Cutoff 30); Phencyclidine NEGATIVE ng/mL (Cutoff 15)
[2017-11-30] MEDS: Sucralfate 1 GM TABLET PO SCH ×3 (06:32→16:19)
[2017-11-30] MEDS: *HR* LORazepam 1 MG TABLET PO PRN ×2 (06:41→17:04)
[2017-11-30] MEDS: *HR* OxyCODONE Immed Rel 5 MG TABLET PO PRN ×3 (06:41→16:19)
[2017-11-30] MEDS: Nicotine 14 MG PATCH.TD24 TD SCH (08:45)
[2017-11-30] MEDS: Vitamin B Complex/Vit C/Vit E 1 EACH TABLET PO SCH (08:46)
[2017-11-30] MEDS: Ondansetron ODT 4 MG TAB.RAPDIS SL PRN (11:30)
[2017-11-30] MEDS ORDERED: Nicotine 21 MG PATCH.TD24 TD SCH (14:30)
[2017-11-30 15:40] VITALS: BP 124/73
--- NOTE | 2017-11-30 16:54 | Discharge Summary ---
Date of Encounter: 11/30/17 Time of Encounter: 16:52 - Discharge Diagnosis (1) Intractable nausea and vomiting Priority: Primary Status: Acute Qualifiers: Vomiting type: unspecified Qualified Code(s): R11.2 - Nausea with vomiting , unspecified (2) Sinus tachycardia Priority: Secondary Status: Acute (3) Alcoholic hepatitis Priority: Secondary Status: Acute Qualifiers: Ascites presence: without ascites Qualified Code(s): K70.10 - Alcoholic hepatitis without ascites (4) Hypokalemia Priority: Secondary Status: Acute (5) Hyponatremia Priority: Secondary Status: Acute (6) Alcohol abuse, in remission Priority: Secondary Status: Acute (7) Status post cholecystectomy Priority: Secondary Status: Acute (8) Biliary dyskinesia Priority: Secondary Status: Acute (9) Esophageal ulcer without bleeding Priority: Secondary Status: Acute - Discharge Medications Prescriptions: Ondansetron ODT [Zofran ODT] 4 mg SL Q8HR PRN #21 tab.rapdis PRN Reason: Nausea And Vomiting Docusate [Colace] 100 mg PO BID #30 capsule Nicotine Patch [Nicoderm] 21 mg TD DAILY #30 patch.td24 OxyCODONE Immed Rel [Roxicodone 5 MG] 5 mg PO Q4H PRN 5 Days #30 tablet PRN Reason: Pain Home Medications: Mv-Mn/FA/Vit K/Lycop/Lut/Coq10 [Daily Multivitamin Capsule] 1 tab PO DAILY 09/29 [History] Naproxen Sodium [Aleve] 220 mg PO BID PRN 09/29/17 [History] Omeprazole [PriLOSEC] 40 mg PO BIDAC #60 capsule. 10/02/17 [Rx] Sucralfate [Carafate] 1 gm PO QIDAC #120 tablet 10/02/17 [Rx] Buprenorphine HCl/Naloxone HCl [Buprenorphin-Naloxon 8-2 mg Sl] 1 tab SL BID [History] Docusate [Colace] 100 mg PO BID #30 capsule 11/29/17 [Rx] OxyCODONE Immed Rel [Roxicodone 5 MG] 5 mg PO Q4H PRN 5 Days #30 tablet [Rx] Nicotine Patch [Nicoderm] 21 mg TD DAILY #30 patch.td24 02/17/18 [Rx] Ondansetron ODT [Zofran ODT] 4 mg SL Q8HR PRN #21 tab.rapdis 11/30/17 [Rx] Allergies/Adverse Reactions: 3 Allergy/AdvReac Type Severity Reaction Status Date / Time No Known Allergies Allergy Verified 11/25/17 17:40 Procedures/tests Complete & Pending: Procedures Performed prior 72 hours Category Date Time Status EKG [ECG 12 lead ECG] [ECG] Routine Y 11/29/17 09:36 Completed EV echocardiogram Routine Y 11/29/17 09:36 Completed Date of admission: 11/26/17 01:33 Primary care physician: Iris Ambrose Consults: 11/27/17 09:04 Consult to Gastroenterology [CONS] Routine Consulting Provider: Gastroenterology Katherine Reason for Consult: RUQ pain, N/V Call Completed: Yes 11/27/17 09:17 Consult to Surgery [CONS] Routine Consulting Provider: [facility] Reason for Consult: RUQ pn, delayed order Call Completed: Yes Discharging clinician: Rolly Ndiaye - Patient Status Disposition: Home, Self-Care Condition: Good Functional capacity at discharge: independent ambulation Overall status at discharge: patient is back to baseline - Discharge Instructions Follow Up With: Iris Ambrose MD [Primary Care Provider] - 12/06/17 1:00 pm Janett Hoskins CNP [Advanced Practice Nurse] - 12/12/17 8:30 am (surgery follow-up) Additional Instructions: #1 may shower, no tub bath for 2 weeks #2 wash incisions with soap and water and pat dry daily #3 no lifting, pushing, pulling more than 15 pounds for the next 2 weeks #4 no driving until off narcotics for 24 hours and able to safely react in the car #5 may climb stairs - Diet and Activity Activity: increase activity as tolerated Diet: low fat, low cholesterol, low salt diet Hospital course: Patient with history of alcohol abuse, fatty liver, opiate abuse, IV drug abuse. Patient presented to the emergency room with 4 days of nausea vomiting abdominal pain has similar episode recent admission had EGD which showed gastritis. Patient being admitted due to dehydration sodium was 127 potassium 2.7. He was treated with IV fluids, Protonix, and potassium. An ultrasound gallbladder showed gallbladder sludge and mildly dilated common bile duct. Bilirubin was elevated at 2.9 on admission. MRI done showed no stones. Findings concerning for biliary dyskinesia. Surgery was consulted. Patient underwent laparoscopic cholecystectomy, tolerated procedure without issue. Patient symptoms improved. He was discharged in stable condition. - Repeat CMP to be done in 3 days - Sinus tachycardia, patient states is from pain, should follow-up with PCP. - Had elevated blood pressure related to pain, encouraged follow-up with PCP - Time Spent with Patient Total time spent providing and/or coordinating discharge services: - Constitutional Vitals: Temp Pulse Resp BP Pulse Ox 99.2 F 117 14 124/73 95 11/30/17 15:39 11/30/17 15:39 11/30/17 15:39 11/30/17 15:39 11/30/17 15:39 - Head Head exam: Present: atraumatic, normocephalic - Eye Eye exam: Present: PERRL, conjuntiva pink, sclera anicteric Pupils: Present: PERRL - Neck Neck exam general surgery: Present: supple, trachea midline. Absent: lymphadenopathy - Respiratory Respiratory exam: Present: CTAB. Absent: accessory muscle use, rales, rhonchi, wheezes - Cardiovascular Cardiovascular exam: Present: RRR, +S1, +S2. Absent: diastolic murmur, gallop, rubs, systolic murmur - GI/Abdominal GI/Abdominal exam: Present: normal bowel sounds, soft, no peritoneal signs. Absent: distended, tenderness - Extremities Exam Extremities exam: Present: warm, radial pulses palpable and symmetrical. Absent : calf tenderness, cyanotic, pedal edema - Neurological Exam Neurological exam: Present: CN II-XII intact, oriented X3, no focal deficits. Absent: pronater drift, facial droop, speech deficit - Skin Skin exam: Present: dry, intact - VTE Documentation of Mechanical Device: Intermittent pneumatic compression device
[2017-11-30] MEDS: Thiamine (B-1) 100 MG, Folic Acid 1 MG, MVI, adult with vitamin K 10 ML in 0.9 % Sodi... IVPB SCH (17:10)
--- NOTE | 2017-12-01 10:57 | Electrocardiograph Report ---
[address] [place], [place] [address] Test Date: 2017-11-29 Pat Name: Ramo Catalan Department: 113 Room: 3B43 Gender: M Client Service Consultant: Sally TORRES : 1980 Requested By: Piper Ndiaye Order Number: [id number] Reading MD: Teagan Whatley Measurements Intervals [place] Rate: 116 P: 45 UT: 134 QRS: 49 QRSD: 78 T: 32 QT: 334 QTc: 403 Interpretive Statements SINUS TACHYCARDIA NONSPECIFIC ST-WAVE ABNORMALITY ABNORMAL RHYTHM ECG Electronically Signed On 12-01-2017 10:56:08 EST by Teagan Whatley
[2017-12-04 23:23] LABS: Norbuprenorphine 7.6 ng/mL
[2017-12-05 08:27] LABS: Buprenorphine 3.7 ng/mL
== END 2017-11-30 19:22 | disposition home or self-care (01) ==
LOC: 2SOUTHHOLD 17:37 → EMEROO 17:37 → 2SOUTHHOLD 11-26 01:54 → 3BNU 11-27 07:11
PROVIDERS: ADMIT Internal Medicine Cardiovascular Disease; ATTEND Student in an Organized Health Care Education/Training Program